=== PATIENT | female | born 1965 | race Caucasian/White ===

== ENCOUNTER → 2019-12-02 11:34 | Outpatient (BNVA) | payer BC, SELFPAY | PROVIDERS: Visit Provider Nurse Practitioner Family | DX: E11.65 Type 2 diabetes mellitus with hyperglycemia (principal); E03.9 Hypothyroidism, unspecified; E55.9 Vitamin D deficiency, unspecified; Z12.31 Encounter for screening mammogram for malignant neoplasm of breast; G25.81 Restless legs syndrome; I10 Essential (primary) hypertension; E78.5 Hyperlipidemia, unspecified; Z79.4 Long term (current) use of insulin; Z53.20 Procedure and treatment not carried out because of patient's decision for unspecified reasons | CPT/HCPCS: 80053; 80061; 82044; 82306; 83036; 84443; 85025 ==

== ENCOUNTER 2019-12-31 20:00 | Outpatient (CLI) | payer BC, SELFPAY | END 2019-12-31 20:01 | disposition home or self-care (01) | LOC: SLEEP 01-01 10:44 | PROVIDERS: PCP Nurse Practitioner Family; Visit Provider Nurse Practitioner Family | DX: G47.33 Obstructive sleep apnea (adult) (pediatric) (principal) | CPT/HCPCS: 95810; 95811 ==

== ENCOUNTER → 2020-03-17 08:29 | Outpatient (BNVA) | payer BC, SELFPAY | PROVIDERS: PCP Nurse Practitioner Family; Visit Provider Nurse Practitioner Family | DX: E11.65 Type 2 diabetes mellitus with hyperglycemia (principal); Z79.4 Long term (current) use of insulin; E03.9 Hypothyroidism, unspecified | CPT/HCPCS: 80053; 80061; 83036; 84443 ==

== ENCOUNTER → 2020-05-18 11:43 | Outpatient (BNVA) | payer BC, SELFPAY | PROVIDERS: PCP Nurse Practitioner Family; Visit Provider Nurse Practitioner Family | DX: R50.9 Fever, unspecified (principal); R05 Cough | CPT/HCPCS: 87635 ==

== ENCOUNTER → 2020-06-01 13:13 | Outpatient (BNVA) | payer BC, SELFPAY | PROVIDERS: PCP Nurse Practitioner Family; Visit Provider Nurse Practitioner Family | DX: U07.1 COVID-19 (principal) | CPT/HCPCS: 87635 ==

== ENCOUNTER → 2020-06-23 09:03 | Outpatient (BNVA) | payer BC, SELFPAY | PROVIDERS: PCP Nurse Practitioner Family; Visit Provider Nurse Practitioner Family | DX: E11.65 Type 2 diabetes mellitus with hyperglycemia (principal); Z79.4 Long term (current) use of insulin; E03.9 Hypothyroidism, unspecified | CPT/HCPCS: 80053; 83036; 84443 ==

== ENCOUNTER → 2020-06-24 16:49 | Outpatient (BNVA) | payer BC, SELFPAY | PROVIDERS: PCP Nurse Practitioner Family; Visit Provider Nurse Practitioner Family | DX: M79.671 Pain in right foot (principal) | CPT/HCPCS: 73630 ==

== ENCOUNTER → 2020-07-12 10:40 | Outpatient (BNVA) | payer BC, SELFPAY | PROVIDERS: PCP Nurse Practitioner Family; Visit Provider Family Medicine | DX: L29.9 Pruritus, unspecified (principal); R21 Rash and other nonspecific skin eruption | CPT/HCPCS: 85025; 86618; 86666; 86757 ==

== ENCOUNTER → 2020-11-03 09:39 | Outpatient (BNVA) | payer BC, SELFPAY | PROVIDERS: PCP Nurse Practitioner Family; Visit Provider Nurse Practitioner Family | DX: E11.65 Type 2 diabetes mellitus with hyperglycemia (principal); Z79.4 Long term (current) use of insulin; E55.9 Vitamin D deficiency, unspecified; E03.9 Hypothyroidism, unspecified; E78.5 Hyperlipidemia, unspecified | CPT/HCPCS: 80053; 80061; 82043; 82306; 83036; 84443; 85025 ==

== ENCOUNTER → 2021-01-23 08:22 | Outpatient (BNVA) | payer BC, SELFPAY | PROVIDERS: PCP Nurse Practitioner Family; Visit Provider Nurse Practitioner Family | DX: I10 Essential (primary) hypertension (principal); E03.9 Hypothyroidism, unspecified; E78.5 Hyperlipidemia, unspecified; E55.9 Vitamin D deficiency, unspecified; E11.65 Type 2 diabetes mellitus with hyperglycemia; Z79.4 Long term (current) use of insulin | CPT/HCPCS: 80053; 82306; 83036; 84443 ==

== ENCOUNTER → 2021-04-04 11:15 | Outpatient (BNVA) | payer BC, SELFPAY | PROVIDERS: PCP Nurse Practitioner Family; Visit Provider Nurse Practitioner Family | DX: M25.511 Pain in right shoulder (principal); R07.81 Pleurodynia | CPT/HCPCS: 71110; 73030 ==

== ENCOUNTER 2021-04-14 16:33 | Emergency (ER) | payer BC, SELFPAY ==
[2021-04-14 16:58] VITALS: BP 126/78; PULSE 101; RESP 18; TEMP 36.5; O2SAT 97; BMI 41.1
--- NOTE | 2021-04-14 17:18 | ED_ITS ---
HPI - Fall General: Chief Complaint: Fall Stated Complaint: Fall, Back Pain Time Seen by Provider: 04/14/21 17:14 History of Present Illness: HPI Narrative: Patient states she fell about 1:00 this afternoon landing on her buttocks. She did not have immediate pain in her back but little bit later she developed pain in her low back and she is here for that reason today. States that she got her feet tangled up in this region she fell denies loss of consciousness. complaint: fall Onset (ago): hour(s) Fall from: standing Fall witnessed: yes, by bystander Place fall occurred: home Loss of consciousness: None Context: tripped/slipped Location of injury: back Quality: aching Associated symptoms-after fall: Reports no associated symptoms; Denies abdominal pain, chest pain or headache(s) Review of Systems Const: Denies: fever(s), chills or body aches Eyes: Denies: change in vision or blurry vision ENMT: Denies: throat pain or nasal congestion Card: Denies: chest pain or dyspnea on exertion Resp: Denies: dyspnea, productive cough or non-productive cough GI: Denies: abdominal pain, nausea or vomiting Musc: Reports: back pain; Denies: extremity pain Skin/Breast: Denies: rash Neuro: Denies: headache(s) Psych: Denies: anxiety or depression Wilberto/Lymph: Denies: easy bruising PFSH ED PFSH: Medical History (Updated 04/14/21 @ 18:08 by ARI Garvin) Diabetes mellitus Hyperlipidemia Hypertension Hypothyroid Nocturnal hypoxemia NATALIE (obstructive sleep apnea) Restless leg syndrome Vitamin D deficiency Surgical History Hx of appendectomy Hx of knee surgery Hx of tonsillectomy Social History Smoking and tobacco status: never smoked Second hand smoke exposure: No Alcohol intake: never Lives independently: Yes Household members: spouse Housing: House Marital status: Current occupational status: employed Current occupation: [employer] History of recent travel: No Current gender identity: Female Physical Exam Const: COMMON NORMALS: no acute distress Cardio: COMMON NORMALS: regular rate RATE: regular rate Back/Pelvis: LUMBAR SPINE/LOWER BACK: Yes lumbar spinal tenderness Psych: COMMON NORMALS: mental status grossly normal Course Vital Signs: Vital signs: Vital Signs Temperature 97.7 F 04/14/21 16:58 Pulse Rate 101 H 04/14/21 16:58 Respiratory Rate 18 04/14/21 16:58 Blood Pressure 126/78 04/14/21 16:58 Pulse Oximetry 97 04/14/21 16:58 MDM - Fall MDM Narrative: Medical decision making narrative: I have tried to call her listed numerous times and keep getting a busy signal;. I will keep trying - will discuss thoracic finding with her. I was able to talk to Ms. Ellis at 0 [phone] this morning on Saturday. Discussed results of her radiology exam and instructed patient to follow back up with her primary care provider and discuss results of that and her upcoming bone scan determine nature of this thoracic fracture. Can discuss with her provider about whether be need for brace patient says pain medication is helping and she is just sitting in chair taking it easy presently and has no plan for any vigorous activity upcoming. Advised her to follow-up with her primary care provider Saturday and go over her symptoms. Advised her that that if worsening symptoms that she could come back to ER can be reevaluated possibility having a TL SO brace on if needed. Discharge Plan Discharge Patient Disposition: Home Clinical Impression: Fall Qualifiers: Encounter type: initial encounter Qualified Code(s): W19.XXXA - Unspecified fall, initial encounter Compression fracture of thoracic vertebra Qualifiers: Encounter type: initial encounter Thoracic vertebra fracture level: T12 Qualified Code(s): S22.080A - Wedge compression fracture of T11-T12 vertebra, initial encounter for closed fracture Condition: Stable Prescriptions: New hydrocodone-acetaminophen 5-325 mg tablet 1 tab PO TID PRN (Reason: pain) Qty: 20 RF: 0 cyclobenzaprine 5 mg tablet 5 mg PO TID PRN (Reason: muscle spasm) Qty: 10 RF: 0 No Action (DME) One free style vonnie reader See Rx Instructions .Route .MEDSUPPLY Qty: 1 RF: 0 hydroxyzine HCl 25 mg tablet 25 mg PO TID Qty: 30 RF: 1 diclofenac sodium 75 mg tablet,delayed release (DR/EC) 75 mg PO BID PRN (Reason: pain) Qty: 60 RF: 0 cyclobenzaprine 10 mg tablet See Rx Instructions PO TID PRN (Reason: muscle spasm) Qty: 30 RF: 0 furosemide [Lasix] 20 mg tablet 20 mg PO QAM Qty: 14 RF: 0 potassium chloride 10 mEq capsule, extended release 10 meq PO DAILY Qty: 14 RF: 0 ropinirole 4 mg tablet See Rx Instructions .ROUTE .COMPLEX Qty: 60 RF: 0 captopril 50 mg tablet See Rx Instructions .ROUTE .COMPLEX Qty: 30 RF: 2 Bydureon 2 mg/0.65 mL pen injector See Rx Instructions .ROUTE .COMPLEX Qty: 4 RF: 2 famotidine 20 mg tablet See Rx Instructions .ROUTE .COMPLEX Qty: 30 RF: 2 gabapentin 300 mg capsule See Rx Instructions .ROUTE .COMPLEX Qty: 120 RF: 2 glyburide 5 mg tablet See Rx Instructions .ROUTE .COMPLEX Qty: 120 RF: 2 hydrochlorothiazide 12.5 mg tablet See Rx Instructions .ROUTE .COMPLEX Qty: 30 RF: 2 levothyroxine 100 mcg tablet See Rx Instructions .ROUTE .COMPLEX Qty: 30 RF: 2 Janumet 50-1,000 mg tablet See Rx Instructions .ROUTE .COMPLEX Qty: 60 RF: 2 venlafaxine 75 mg capsule,extended release 24hr See Rx Instructions .ROUTE .COMPLEX Qty: 30 RF: 2 ergocalciferol (vitamin D2) 1,250 mcg (50,000 unit) capsule 1,250 mcg PO .weekly Qty: 12 RF: 0 Lantus Solostar U-100 Insulin 100 unit/mL (3 mL) insulin pen 80 unit SUBCUT DAILY Qty: 30 RF: 2 insulin lispro [Humalog KwikPen Insulin] 100 unit/mL insulin pen See Rx Instructions .ROUTE .COMPLEX Qty: 15 RF: 2 pravastatin 80 mg tablet See Rx Instructions .ROUTE .COMPLEX Qty: 30 RF: 2 FreeStyle Vonnie 14 Day Sensor Kit See Rx Instructions .ROUTE .COMPLEX Qty: 2 RF: 11 pen needle, diabetic [UltiCare Pen Needle] 32 gauge x 5/32 needle See Rx Instructions .ROUTE .COMPLEX Qty: 100 RF: 3 Discharge Orders: Discharge ED (Routine); Ordered 04/14/21 Ordered By: Mitchell Hair Referrals: Sydnee Rivero, [facility]LLER [Primary Care Provider] - Discharge Diet: Usual diet Discharge Activity: Resume usual activity Patient Instructions: Back Pain (ED), Fall Prevention (ED), Opioid Safety Activity Restrictions/Additional Instructions: Follow-up with medical provider as directed. Take medications as prescribed. Return to the ER or your medical provider if condition worsens. Please read and understand discharge instructions. If any questions ask please. Radiology will review x-rays later we will notify you if there is any changes. Coding Level of Care Code ED Deoiling Machine Operator for Chg Fwd Exam Expanded Problem Focused
--- NOTE | 2021-04-14 17:18 | XRR_ITS ---
PROCEDURE INFORMATION: Exam: XR Lumbosacral Spine Exam date and time: 04/14/2021 5:18 PM Age: 55 years old Clinical indication: Low back pain; Additional info: Fall TECHNIQUE: Imaging protocol: XR of the lumbosacral spine. Views: 2 or 3 views. COMPARISON: No relevant prior studies available. FINDINGS: Bones/joints: There is osteopenia. There is anterior wedging fracture deformity of T12 with mild bowing of the posterior endplate. No additional acute fracture. No subluxation. Soft tissues: Unremarkable. Other findings: Probable cholelithiasis is noted. XR/XR lumbar spine 2-3V* [id number] IMPRESSION: Two column anterior wedging fracture deformity of T12 without significant retropulsed bone.
== END 2021-04-14 18:04 | disposition home or self-care (01) ==
PROVIDERS: Emergency Provider Nurse Practitioner Family; PCP Nurse Practitioner Family
DX: S22.080A Wedge compression fracture of T11-T12 vertebra, initial encounter for closed fracture (principal); Z79.4 Long term (current) use of insulin; E11.9 Type 2 diabetes mellitus without complications; E78.5 Hyperlipidemia, unspecified; I10 Essential (primary) hypertension; W19.XXXA Unspecified fall, initial encounter
CPT/HCPCS: 72100; 99282

== ENCOUNTER 2021-04-18 15:58 | Emergency (ER) | payer BC, SELFPAY ==
[2021-04-18 16:44] VITALS: BP 122/78; PULSE 99; RESP 16; TEMP 36.5; O2SAT 97; BMI 40.7
--- NOTE | 2021-04-18 17:12 | ED_ITS ---
HPI - Recheck/Abnormal Lab/Rx General: Chief Complaint: Recheck/Abnormal Lab/Rx Stated Complaint: needs pain meds/ortho referral Time Seen by Provider: 04/18/21 17:11 History of Present Illness: HPI narrative: Patient is a 55-year-old female comes to the ED with back pain. Patient was seen here in the ED on April 14 after a fall and diagnosed with compression fracture of thoracic vertebrae. She was supposed to follow-up with her primary care physician today and to discuss getting a TLSO brace but she missed her appointment. She was told to come here to the ED for further evaluation. Patient says her pain is rated an 8 out of 10 at its in the mid to lower back. She denies any reinjuries or fall. Patient would like a referral to the orthopedic spine doctor. Review of Systems Const: Denies: fever(s), chills or fatigue Eyes: Denies: change in vision or eye discomfort ENMT: Denies: throat pain, odynophagia, nasal discharge or nasal congestion Card: Denies: chest pain, palpitations, edema, swelling of feet/ankles, dyspnea on exertion or orthopnea Resp: Denies: dyspnea, productive cough or non-productive cough GI: Denies: abdominal pain, nausea, vomiting, diarrhea, constipation or hematochezia : Denies: flank pain, dysuria or hematuria Musc: Reports: back pain; Denies: neck pain or extremity swelling Skin/Breast: Denies: rash or new lesions Neuro: Denies: headache(s), numbness in extremities or weakness in extremities PFS ED PFSH: Medical History Diabetes mellitus Hyperlipidemia Hypertension Hypothyroid Nocturnal hypoxemia NATALIE (obstructive sleep apnea) Restless leg syndrome Vitamin D deficiency Surgical History Hx of appendectomy Hx of knee surgery Hx of tonsillectomy Social History Smoking and tobacco status: never smoked Second hand smoke exposure: No Alcohol intake: never Lives independently: Yes Household members: spouse Housing: House Marital status: Current occupational status: employed Current occupation: [employer] History of recent travel: No Current gender identity: Female Physical Exam Const: COMMON NORMALS: no acute distress, patient oriented x3 and alert GENERAL APPEARANCE: cooperative and comfortable HENMT: COMMON NORMALS: normocephalic HEAD & SCALP: normocephalic MOUTH: Normal oral and palatal mucosa present THROAT: posterior oropharynx normal and uvula midline Neck/C-Spine: COMMON NORMALS: supple GENERAL: Yes normal visual inspection Resp: COMMON NORMALS: normal respiratory effort, No retractions, No use of accessory muscles and clear to auscultation bilaterally AUSCULTATION: clear to auscultation bilaterally Cardio: COMMON NORMALS: regular rate, regular rhythm, S1 normal heart sound present, S2 normal heart sound present, No gallops present (Cardio), No clicks present (Cardio), No murmurs present (Cardio) and Peripheral pulses 2+ throughout RATE: regular rate RHYTHM: regular rhythm HEART SOUNDS: S1 normal heart sound present and S2 normal heart sound present PERIPHERAL PULSES: Peripheral pulses 2+ throughout GI: COMMON NORMALS: Normal to inspection, nondistended, normoactive bowel sounds present, Soft to palpation, non-tender and no masses PALPATION: Yes Soft to palpation : COMMON NORMALS: Yes no CVA tenderness BLADDER/KIDNEY EXAM: Yes no CVA tenderness Back/Pelvis: COMMON NORMALS: no CVA tenderness THORACIC SPINE/UPPER BACK: Yes thoracic spinal tenderness T-spine tenderness location: T11 and T12 and Yes paraspinal muscle tenderness Thoracic paraspinal muscle tenderness: bilateral Bilateral thoracic paraspinal muscle tenderness: T11 and T12 Extremity: COMMON NORMALS: normal to inspection Neuro: COMMON NORMALS: patient oriented x3 and moves all extremities SENSORIUM/ORIENTATION: Yes alert Skin: GENERAL SKIN EXAM: dry skin Course Vital Signs: Vital signs: Vital Signs Temperature 97.7 F 04/18/21 16:44 Pulse Rate 101 H 04/18/21 18:00 Respiratory Rate 18 04/18/21 18:00 Blood Pressure 128/79 04/18/21 18:00 Pulse Oximetry 93 04/18/21 18:00 MDM - Recheck/Abnormal Lab/Rx MDM Narrative: Medical decision making narrative: Patient is a 55-year-old female comes to the ED with back pain. Patient was seen here in the ED for same complaint on April 14 and diagnosed with a T12 compression fracture. She was told she could come back here to the ED for reevaluation and to get a TLSO brace if she is unable to get to her primary care doctor. Patient missed a primary care doctor appointment today. Here in the ED patient was given a prescription for a TLSO brace and told to go to [facility] tomorrow to get fitted for brace. She was also given a prescription for tramadol as well for pain. I also placed an order with case management for patient be referred to Dr. Wallace the orthospine doctor for further evaluation. Patient was discharged. She was told that case management will be contacting you in the next couple days to set up an appointment with Dr. Wallace. Return ED precautions given. Patient stood agree with plan. Discharge Plan Discharge Patient Disposition: Home Clinical Impression: Compression fracture of thoracic vertebra Qualifiers: Encounter type: initial encounter Thoracic vertebra fracture level: T12 Qualified Code(s): S22.080A - Wedge compression fracture of T11-T12 vertebra, initial encounter for closed fracture Condition: Stable Prescriptions: No Action (DME) One free style vonnie reader See Rx Instructions .Route .MEDSUPPLY Qty: 1 RF: 0 hydroxyzine HCl 25 mg tablet 25 mg PO TID Qty: 30 RF: 1 diclofenac sodium 75 mg tablet,delayed release (DR/EC) 75 mg PO BID PRN (Reason: pain) Qty: 60 RF: 0 cyclobenzaprine 10 mg tablet See Rx Instructions PO TID PRN (Reason: muscle spasm) Qty: 30 RF: 0 furosemide [Lasix] 20 mg tablet 20 mg PO QAM Qty: 14 RF: 0 potassium chloride 10 mEq capsule, extended release 10 meq PO DAILY Qty: 14 RF: 0 ropinirole 4 mg tablet See Rx Instructions .ROUTE .COMPLEX Qty: 60 RF: 0 captopril 50 mg tablet See Rx Instructions .ROUTE .COMPLEX Qty: 30 RF: 2 Bydureon 2 mg/0.65 mL pen injector See Rx Instructions .ROUTE .COMPLEX Qty: 4 RF: 2 famotidine 20 mg tablet See Rx Instructions .ROUTE .COMPLEX Qty: 30 RF: 2 gabapentin 300 mg capsule See Rx Instructions .ROUTE .COMPLEX Qty: 120 RF: 2 glyburide 5 mg tablet See Rx Instructions .ROUTE .COMPLEX Qty: 120 RF: 2 hydrochlorothiazide 12.5 mg tablet See Rx Instructions .ROUTE .COMPLEX Qty: 30 RF: 2 levothyroxine 100 mcg tablet See Rx Instructions .ROUTE .COMPLEX Qty: 30 RF: 2 Janumet 50-1,000 mg tablet See Rx Instructions .ROUTE .COMPLEX Qty: 60 RF: 2 venlafaxine 75 mg capsule,extended release 24hr See Rx Instructions .ROUTE .COMPLEX Qty: 30 RF: 2 ergocalciferol (vitamin D2) 1,250 mcg (50,000 unit) capsule 1,250 mcg PO .weekly Qty: 12 RF: 0 Lantus Solostar U-100 Insulin 100 unit/mL (3 mL) insulin pen 80 unit SUBCUT DAILY Qty: 30 RF: 2 insulin lispro [Humalog KwikPen Insulin] 100 unit/mL insulin pen See Rx Instructions .ROUTE .COMPLEX Qty: 15 RF: 2 pravastatin 80 mg tablet See Rx Instructions .ROUTE .COMPLEX Qty: 30 RF: 2 FreeStyle Vonnie 14 Day Sensor Kit See Rx Instructions .ROUTE .COMPLEX Qty: 2 RF: 11 pen needle, diabetic [UltiCare Pen Needle] 32 gauge x 5/32 needle See Rx Instructions .ROUTE .COMPLEX Qty: 100 RF: 3 hydrocodone-acetaminophen 5-325 mg tablet 1 tab PO TID PRN (Reason: pain) Qty: 20 RF: 0 cyclobenzaprine 5 mg tablet 5 mg PO TID PRN (Reason: muscle spasm) Qty: 10 RF: 0 Discharge Orders: Discharge ED (Routine); Ordered 04/18/21 Ordered By: Luis Palmer Referrals: Sydnee Rivero FNP [Primary Care Provider] - Discharge Diet: Regular Discharge Activity: Limit activity as instructed Patient Instructions: Tramadol (By mouth), Thoracolumbar Fracture (ED) Activity Restrictions/Additional Instructions: Follow-up with medical provider as directed. Case management will contact you in the next several days set up appointment with Dr. Wallace the orthospine doctor. You can get TLSO brace at [facility] in [place]. Call them ahead of time to set up an appointment to get fitted for the TLSO brace. Take medications as prescribed. Return to the ER or your medical provider if condition worsens. Please read and understand discharge instructions. Thank you for choosing [facility] for your healthcare needs today. Please realize this is an emergency room and that we are providing you with a medical screening exam and this may not be complete and all inclusive of all the testing and or work up that you may need to determine your ailment or severity of your illness. It is very important that you follow up as instructed or that you return to the Emergency Department should you have concerns or if your condition changes or worsens in any way. Coding Level of Care Code ED Boom Pump Operator for Shreya Coppola Exam Comprehensive
[2021-04-18] MEDS: HYDROcodone-acetaminophen 5-325 mg Tablet 1 TAB PO (17:35)
[2021-04-18 18:00] VITALS: BP 128/79; PULSE 101; RESP 18; O2SAT 93
--- NOTE | 2021-04-19 09:11 | PC.SOCIAL ---
Call placed to Ortho clinic and spoke to Neeta. Provided information per Dr Palmer on referral to Dr Wallcae for T12 compression fracture. This will be reviewed and patient called by clinic.
--- NOTE | 2021-05-05 11:20 | DCPLANNER ---
Patient had a follow up appointment scheduled for 05.04.[address] Wallace at [facility] - patient did attend appointment.
== END 2021-04-18 18:58 | disposition home or self-care (01) ==
PROVIDERS: Emergency Provider Physician Assistant; PCP Nurse Practitioner Family
DX: S22.080A Wedge compression fracture of T11-T12 vertebra, initial encounter for closed fracture (principal); Z79.4 Long term (current) use of insulin; E11.9 Type 2 diabetes mellitus without complications; E78.5 Hyperlipidemia, unspecified; I10 Essential (primary) hypertension; W19.XXXA Unspecified fall, initial encounter
CPT/HCPCS: 99283

== ENCOUNTER 2021-04-19 16:33 | Outpatient (CLI) | payer BC, SELFPAY | END 2021-04-19 16:34 | disposition home or self-care (01) | LOC: SPT 16:33 | PROVIDERS: PCP Nurse Practitioner Family; Visit Provider Physician Assistant | DX: Z46.89 Encounter for fitting and adjustment of other specified devices (principal); S22.080D Wedge compression fracture of T11-T12 vertebra, subsequent encounter for fracture with routine healing; X58.XXXD Exposure to other specified factors, subsequent encounter | CPT/HCPCS: 97760; L0456 ==

== ENCOUNTER 2021-04-21 07:17 | Outpatient (CLI) | payer BC, SELFPAY ==
--- NOTE | 2021-04-21 07:20 | NM_ITS ---
WS: [id number] NUCLEAR MEDICINE WHOLE BODY BONE SCAN HISTORY: S22.49XA - Multiple fractures of ribs, unspecified side, ... COMPARISON: Shoulder radiograph 04/04/2021 and RIGHT lumbar spine 04/14/2021 TECHNIQUE: The patient was injected with 26.2 mCi of Technetium 99m HDP and serial whole-body scintig glenn have been performed with anterior and posterior images. Multiple bone abnormalities are identified. Most significant area of intense uptake involves the RIGH T glenoid. Radiographically this corresponds to an area of mixed lytic and sclerotic and permeative c hanges. There is interruption of the bony cortex involving the lateral RIGHT scapular border as seen radiographically. Numerous bilateral focal areas of moderate uptake involving several ribs. Moderate increased uptake within the T12 vertebral body. No additional spine abnormality. Degenerative changes in the tarsal region, bilateral. Normal radiotracer uptake noted within the kidneys and soft tissues . NM/NM bone scan whole body* [id number] IMPRESSION: 1. Multifocal areas of skeletal abnormality involving the ribs, T12 and RIGHT glenoid. Suspicious for metastatic bone disease or metabolic disease. 2. Radiographically mixed sclerotic and lytic changes in the bones. Most signi ficant finding involves the distal RIGHT glenoid and lateral border of the scap prabhu which appears interrupted radiographically. Consider multiple myeloma and m etastatic disease. 3. There is abnormal uptake within the T12 fracture which could be pathologic.
== END 2021-04-21 07:18 | disposition home or self-care (01) ==
LOC: RAD 07:19
PROVIDERS: PCP Nurse Practitioner Family; Visit Provider Nurse Practitioner Family
DX: S22.49XA Multiple fractures of ribs, unspecified side, initial encounter for closed fracture (principal); R07.81 Pleurodynia; M25.511 Pain in right shoulder; X58.XXXA Exposure to other specified factors, initial encounter
CPT/HCPCS: 78306; A9561

== ENCOUNTER → 2021-04-25 16:50 | Outpatient (BNVA) | payer BC, SELFPAY | PROVIDERS: PCP Nurse Practitioner Family; Visit Provider Nurse Practitioner Family | DX: G25.81 Restless legs syndrome (principal); E11.65 Type 2 diabetes mellitus with hyperglycemia; Z79.4 Long term (current) use of insulin; R60.9 Edema, unspecified; T07.XXXA Unspecified multiple injuries, initial encounter; E55.9 Vitamin D deficiency, unspecified; X58.XXXA Exposure to other specified factors, initial encounter | CPT/HCPCS: 80053; 80061; 81000; 82306; 82607; 83036; 83880; 84155; 84165; 84443; 85025; 85651; 86140 ==

== ENCOUNTER → 2021-04-28 13:18 | Outpatient (BNVA) | payer BC, SELFPAY | PROVIDERS: PCP Nurse Practitioner Family; Visit Provider Nurse Practitioner Family | DX: R60.9 Edema, unspecified (principal); T07.XXXA Unspecified multiple injuries, initial encounter; R77.8 Other specified abnormalities of plasma proteins; E78.5 Hyperlipidemia, unspecified; E03.9 Hypothyroidism, unspecified; I10 Essential (primary) hypertension; E83.52 Hypercalcemia; E11.65 Type 2 diabetes mellitus with hyperglycemia; Z79.4 Long term (current) use of insulin; X58.XXXA Exposure to other specified factors, initial encounter | CPT/HCPCS: 80048; 83880; 83883; 84260; 85651 ==

== ENCOUNTER → 2021-05-01 09:21 | Outpatient (BNVA) | payer BC, SELFPAY | PROVIDERS: PCP Nurse Practitioner Family; Visit Provider Nurse Practitioner Family | DX: E83.52 Hypercalcemia (principal); R77.8 Other specified abnormalities of plasma proteins; T07.XXXA Unspecified multiple injuries, initial encounter; X58.XXXA Exposure to other specified factors, initial encounter | CPT/HCPCS: 84156; 84166 ==

== ENCOUNTER → 2021-05-04 14:59 | Outpatient (BNVA) | payer BC, SELFPAY | PROVIDERS: PCP Nurse Practitioner Family; Visit Provider Orthopaedic Surgery | DX: S22.080A Wedge compression fracture of T11-T12 vertebra, initial encounter for closed fracture (principal); W19.XXXA Unspecified fall, initial encounter; M81.0 Age-related osteoporosis without current pathological fracture; K80.20 Calculus of gallbladder without cholecystitis without obstruction | CPT/HCPCS: 72100 ==

== ENCOUNTER → 2021-05-05 12:23 | Outpatient (BNVA) | payer BC, SELFPAY | PROVIDERS: PCP Nurse Practitioner Family; Visit Provider Nurse Practitioner Family | DX: R60.9 Edema, unspecified (principal) | CPT/HCPCS: 80053; 83880 ==

== ENCOUNTER → 2021-05-12 16:19 | Day surgery (SDC) | payer BC, SELFPAY ==
[2021-05-12 17:13] VITALS: BMI 40.7
[2021-05-12] MEDS: sodium chloride 0.9% 1,000 ML 750 ML IV (17:15)
[2021-05-12 17:35] VITALS: BP 126/60; PULSE 102; RESP 18; TEMP 36.7; O2SAT 97
--- NOTE | 2021-05-12 17:41 | PC.NURSE ---
PT QUESTIONED BY THIS NURSE REGARDING HEALTH HX UPON ADMISSION AND ANY POSSIBLE CHF OR KIDNEY ISSUES. PT STATED THAT SOMEONE TOLD HER SHE POSSIBLY HAS CHF. I CALLED NEEL, THE NURSE FOR DR RUIZ. NEEL STATED THAT PT IS SET TO BE TESTED FOR CHF IN NEAR FUTURE. ORDERS TO RUN THE HYDRATION BOLUS OVER 2 HOURS.
--- NOTE | 2021-05-12 17:45 | PC.NURSE ---
AT TIME OF BOLUS STARTED VSS, NO C/O SOB. LUNGS CLEAR , CALL LIGHT W/I REACH AND PT INSTRUCTED ON S/S OF FLUID OVERLOAD AND TO NOTIFY NURSE IMMEDIATLY OF ANY CHANGES.
[2021-05-12] MEDS: sodium chloride 0.9% 500 ML 750 ML IV (18:40)
== END ==
PROVIDERS: PCP Nurse Practitioner Family; Visit Provider Internal Medicine
DX: C79.51 Secondary malignant neoplasm of bone (principal); R79.9 Abnormal finding of blood chemistry, unspecified; R76.8 Other specified abnormal immunological findings in serum; C90.00 Multiple myeloma not having achieved remission; D64.9 Anemia, unspecified; E86.0 Dehydration; E83.52 Hypercalcemia
CPT/HCPCS: 96360; 96361; J7030

== ENCOUNTER 2021-05-14 08:49 | Outpatient (RCR) | payer BC, SELFPAY ==
[2021-05-14] MEDS: sodium chloride 0.9% 1,000 ML 750 ML IV (09:35)
[2021-05-14 09:45] VITALS: BP 151/65; PULSE 104; RESP 16; TEMP 36.8; O2SAT 96
[2021-05-14] MEDS: sodium chloride 0.9% 500 ML 750 ML IV (11:20)
== END 2021-05-20 23:59 | disposition home or self-care (01) ==
LOC: OPS 08:49
PROVIDERS: PCP Nurse Practitioner Family; Visit Provider Internal Medicine
DX: C79.51 Secondary malignant neoplasm of bone (principal); R79.9 Abnormal finding of blood chemistry, unspecified; R76.8 Other specified abnormal immunological findings in serum; C90.00 Multiple myeloma not having achieved remission; D64.9 Anemia, unspecified; E86.0 Dehydration; E83.52 Hypercalcemia
CPT/HCPCS: 96360; 96361; J7030; J7040

== ENCOUNTER 2021-05-15 10:24 | Outpatient (CLI) | payer BC, SELFPAY ==
--- NOTE | 2021-05-15 10:36 | CT_ITS ---
WS: [id number] Exam: CT head wo con* [id number] Date/Time of Exam: 05/15/2021 10:36 AM Reason For Exam: R41.0 - Disorientation, unspecified DLP: 925.[address] scans at [facility] use at least one of these dose optimization techniques: automat ed exposure control; mA and/or kV adjustment per patient size (includes targeted exams where dose is matched to clinical indication); or iterative reconstruction. No sign of acute intracranial bleed or space-occupying mass. The ventricles and basal cisterns are no rmal in size. No extra-axial fluid collections are seen. Ill-defined osteolytic defects are noted in the skull bilaterally and also the bilateral sphenoid bones. CT/CT head wo con* [id number] IMPRESSION: 1. No sign of the acute intracranial bleed or space-occupying mass in the brain . 2. Ill-defined osteolytic bone destruction involving the bilateral skull partic ularly the frontal and temporal areas as well as the bilateral sphenoid bones. This may represent a metastatic bone disease or multiple myeloma.
== END 2021-05-15 10:25 | disposition home or self-care (01) ==
LOC: RADWPI 10:29
PROVIDERS: PCP Nurse Practitioner Family; Visit Provider Nurse Practitioner Family
DX: R41.0 Disorientation, unspecified (principal)
CPT/HCPCS: 70450

== ENCOUNTER 2021-05-15 11:21 | Outpatient (RCR) | payer BC, SELFPAY ==
[2021-05-13 08:40] VITALS: BP 133/67; PULSE 108; RESP 18; TEMP 36.9; O2SAT 97
[2021-05-13] MEDS: sodium chloride 0.9% 1,000 ML 750 ML IV (09:31)
[2021-05-13] MEDS: sodium chloride 0.9% 500 ML 750 ML IV (11:15)
[2021-05-13 11:55] VITALS: BP 162/68; PULSE 108; RESP 18; TEMP 36.7; O2SAT 98
[2021-05-15 11:40] VITALS: BP 168/78; PULSE 102; RESP 20; TEMP 36.8; O2SAT 95
[2021-05-15] MEDS: sodium chloride 0.9% 1,000 ML 750 ML IV (11:50)
[2021-05-15] MEDS: sodium chloride 0.9% 500 ML 900 ML IV (13:13)
== END 2021-05-20 23:59 | disposition home or self-care (01) ==
LOC: OPS 11:21
PROVIDERS: PCP Nurse Practitioner Family; Visit Provider Internal Medicine
DX: C79.51 Secondary malignant neoplasm of bone (principal); R79.9 Abnormal finding of blood chemistry, unspecified; R76.8 Other specified abnormal immunological findings in serum; C90.00 Multiple myeloma not having achieved remission; D64.9 Anemia, unspecified; E86.0 Dehydration; E83.52 Hypercalcemia
CPT/HCPCS: 96360; 96361; J7030; J7040

== ENCOUNTER 2021-05-17 18:35 | Inpatient (IN) | payer BC, SELFPAY ==
[2021-05-17] VITALS (9 sets, daily range): BP systolic 116–137; BP diastolic 57–76; PULSE 102–110; RESP 21–38; TEMP 36.4; O2SAT 87–97; BMI 40.7
--- NOTE | 2021-05-17 18:38 | XRR_ITS ---
PROCEDURE INFORMATION: Exam: XR Chest Exam date and time: 05/17/2021 6:38 PM Age: 55 years old Clinical indication: Cough and fever and shortness of breath; Patient HX: Lethargic, SOB, cough, confusion, fever TECHNIQUE: Imaging protocol: XR of the chest. Views: 1 view. COMPARISON: No relevant prior studies available. FINDINGS: Lungs: Decreased lung volumes. Mildly increased interstitial lung markings diffusely. Patchy infrahilar airspace opacities are nonspecific given the low lung volumes. Pleural spaces: Unremarkable. No pleural effusion. No pneumothorax. Heart/Mediastinum: Mild cardiac enlargement. Bones/joints: Demineralized bones. Subarticular fracture of the right lateral scapula. XR/XR chest 1V portable [id number] IMPRESSION: Mild pulmonary vascular congestion changes are suspected.
--- NOTE | 2021-05-17 19:56 | ED_ITS ---
Documented by User: Thien Iniguez MD 05/17/21 22:32 HPI - Altered Mental Status General: Chief Complaint: Altered Mental Status Stated Complaint: Lethargic\SOB\Confusing\Fever Time Seen by Provider: 05/17/21 19:47 History of Present Illness: HPI narrative: This patient is a 55-year-old female who presents to the emergency department with shortness of breath confusion generalized weakness. Patient is recently diagnosed with multiple myeloma cancer and has been in the hospital few times for treatments. As an outpatient. Patient also recently was diagnosed with multiple compression fractures in the T and L-spine. And being in treated and followed by orthopedics for the same. Patient appears to be confused when asked questions and looks at her answer questions. Patient did have a CT scan performed 2 days ago as an outpatient. IMPRESSION: 1. No sign of the acute intracranial bleed or space-occupying mass in the brain. 2. Ill-defined osteolytic bone destruction involving the bilateral skull particularly the frontal and temporal areas as well as the bilateral sphenoid bones. This may represent a metastatic bone disease or multiple myeloma. complaint: confusion Onset (ago): day(s) Timing confirmed by: spouse Associated symptoms: Deny depression Review of Systems General: Reports: 10 or more systems reviewed and unremarkable except in HPI and below Const: Reports: fatigue; Denies: fever(s), chills or body aches Eyes: Denies: change in vision or blurry vision ENMT: Denies: throat pain, hoarseness or mouth pain Card: Denies: chest pain, palpitations, irregular heart rhythm, edema, swelling of feet/ankles or lightheadedness Resp: Reports: dyspnea; Denies: productive cough, non-productive cough, wheezing or pain on inspiration GI: Denies: abdominal pain, nausea or vomiting : Denies: flank pain, difficulty voiding, dysuria, urinary frequency, urinary urgency or urinary hesitancy Musc: Denies: neck pain, back pain, extremity pain, extremity swelling, joint pain, joint swelling, joint redness, joint warmth or limited range of motion Skin/Breast: Denies: rash, pruritus, erythema or skin tenderness Neuro: Reports: confusion; Denies: headache(s), numbness in extremities or weakness in extremities Psych: Reports: difficulty concentrating; Denies: anxiety or depression PFS ED PFSH: Medical History (Updated 05/17/21 @ 22:32 by Thien Iniguez MD) Diabetes mellitus Hyperlipidemia Hypertension Hypothyroid Nocturnal hypoxemia NATALIE (obstructive sleep apnea) Restless leg syndrome Vitamin D deficiency Surgical History Hx of appendectomy Hx of knee surgery Hx of tonsillectomy Social History Second hand smoke exposure: No Alcohol intake: never Caregiver/support person: Yes Lives independently: Yes Household members: spouse Housing: House Marital status: service: No Current occupational status: employed Current occupation: [employer] History of recent travel: No Current gender identity: Female Special lina needs: No Agree to transfusion: Yes Physical Exam Const: COMMON NORMALS: no acute distress, average body habitus, no limitations, healthy appearing, alert and well nourished ORIENTATION/CONSCIOUSNESS: Yes oriented to person and Yes oriented to place; not oriented to time HENMT: COMMON NORMALS: normocephalic, atraumatic, hearing grossly normal bilaterally, external ears normal, EAC's normal, TM's normal bilaterally, Normal external nose present, Normal nasal mucous membranes and turbinates present, moist oral mucous membranes, oropharynx normal, dentition normal and gingiva normal HEAD & SCALP: normocephalic and atraumatic NOSE: Normal external nose present and Normal nasal mucous membranes and turbinates present EXTERNAL EAR: Yes external ears normal EXTERNAL AUDITORY CANAL: EAC's normal TYMPANIC MEMBRANE: TM's normal bilaterally Neck/C-Spine: COMMON NORMALS: full ROM, no lymphadenopathy, supple, no meningeal signs, no JVD, Thyroid normal and No carotid bruits THYROID: Thyroid normal Chest: COMMONS NORMALS: normal inspection of the chest, normal palpation of entire chest wall, normal inspection of the breasts and normal palpation of the breasts Resp: COMMON NORMALS: normal respiratory effort, No retractions, No use of accessory muscles, clear to auscultation bilaterally and percussion normal AUSCULTATION: clear to auscultation bilaterally PERCUSSION: percussion normal Cardio: COMMON NORMALS: no JVD, regular rate, regular rhythm, S1 normal heart sound present, S2 normal heart sound present, No gallops present (Cardio), No clicks present (Cardio), No murmurs present (Cardio), No rub (Cardio) and Peripheral pulses 2+ throughout RATE: regular rate RHYTHM: regular rhythm HEART SOUNDS: S1 normal heart sound present and S2 normal heart sound present PERIPHERAL PULSES: Peripheral pulses 2+ throughout GI: COMMON NORMALS: Normal to inspection, nondistended, normoactive bowel sounds present, Soft to palpation, non-tender, No hepatosplenomegaly present, no masses and no bruits PALPATION: Yes Soft to palpation and Yes No hepatosplenomegaly present : COMMON NORMALS: Yes no CVA tenderness, Yes normal external appearance, Yes normal appearance of the vagina, Yes normal appearance of the cervix, Yes normal bimanual exam, Yes No adnexal tenderness and Yes no masses BLADDER/KIDNEY EXAM: Yes no CVA tenderness BIMANUAL EXAM - VAGINA & UTERUS: Yes normal bimanual exam Back/Pelvis: COMMON NORMALS: no CVA tenderness, thoracic and lumbar spine normal to inspection, no thoracic nor lumbar tenderness, thoraco-lumbar ROM normal and straight leg raise negative bilaterally Extremity: COMMON NORMALS: normal to inspection, full ROM, capillary refill normal, no joint enlargement, no clubbing, cyanosis or edema, no calf tenderness and no pedal edema Neuro: SENSORIUM/ORIENTATION: Yes alert, Yes oriented to person, Yes oriented to place, No oriented to time and Yes Orientation impaired MENINGEAL SIGNS: Yes no meningeal signs Course Vital Signs: Vital signs: Vital Signs Temperature 97.6 F 05/17/21 19:38 Pulse Rate 105 H 05/17/21 23:05 Respiratory Rate 38 H 05/17/21 23:05 Blood Pressure 137/76 05/17/21 23:05 Pulse Oximetry 97 05/17/21 23:05 MDM - Altered Mental Status Lab Data: Labs: Lab Results 05/17/21 05/17/21 05/17/21 Range/Units 20:00 20:00 20:00 WBC 6.9 (4.0-10.0) 10^3/ uL RBC 3.39 L (4.1-5.3) 10^6/u L Hgb 9.6 L (11.5-15.3) g/dL Hct 30.5 L (37.0-47.0) % MCV 90.0 (81-99) fL MCH 28.3 (28.0-34.0) pg MCHC 31.5 (30.0-36.0) g/dL RDW 18.2 H (12.1-15.1) % Plt Count 127 L (130-400) 10^3/c mm MPV 12.0 H (7.4-10.4) fL Neut % (Auto) 86.7 % Lymph % (Auto) 4.9 % Lincoln % (Auto) 6.4 % Eos % (Auto) 0.1 % Baso % (Auto) 0.3 % Neut # (Auto) 6.00 (1.8-7.7) 10^3/u L Lymph # (Auto) 0.3 L (0.8-4.8) 10^3/u L Lincoln # (Auto) 0.4 (0.2-0.9) 10^3/u L Eos # (Auto) 0.0 (0.0-0.8) 10^3/u L Baso # (Auto) 0.0 (0.0-0.1) 10^3/u L Nucleated RBC % (a uto) 0 % Nucleated RBCs # 0.0 /100WBC D-Dimer Specimen Type Sample Site ABG pH (7.35-7.45) ABG pCO2 (35-45) mmHg ABG pO2 (80.0-100.0) mmH g ABG HCO3 (22-26) mmol/L ABG O2 Saturation ABG Base Excess (-2.0-2.0) mmol/ L Tani Test A-a O2 Gradient (5-10) mmHg Hematocrit (37-47) % Hgb O2 Saturation (95-100) % Carboxyhemoglobin (0.4-20.1) %THgb Methemoglobin (0.4-1.5) % Total Hemoglobin (12-16) g/dL Ionized Calcium (1.1-1.4) mmol/L O2 Delivery Device Mail Truck Driver ID Sodium Cancelled Potassium Cancelled Chloride Cancelled Carbon Dioxide Cancelled Anion Gap Cancelled BUN Cancelled Creatinine Cancelled GFR Calculation Cancelled Glucose Cancelled POC Glucose (70-110) mg/dL Calculated Osmolal ity Cancelled Lactic Acid Cancelled Calcium Cancelled Total Bilirubin Cancelled AST Cancelled ALT Cancelled Alkaline Phosphata se Cancelled Troponin T Baselin e Troponin T 120 Min craig (0-10) ng/L Delta Troponin T (0-10) ABS# C-Reactive Protein Cancelled NT-Pro-B Natriuret Pep Cancelled Total Protein Cancelled Albumin Cancelled Globulin Cancelled Urine Color (Yellow) Urine Appearance (CLEAR) Urine pH (5-7) Ur Specific Gravit y (1.005-1.030) Urine Protein (Negative) Urine Glucose (UA) (Normal) Urine Ketones (Negative) Urine Blood (Negative) Urine Nitrate (Negative) Urine Bilirubin (Negative) Urine Urobilinogen (Negative) mg/dL Ur Leukocyte Amy ase (Negative) Urine RBC (0-2) /hpf Urine WBC (0-5) /hpf Ur Squamous Epith Cells (0-5) /hpf Calcium Oxalate Cr ystal /hpf Amorphous Sediment /hpf Urine Bacteria (NONE) /hpf Urine Mucus /hpf Urine Opiates Scre en (Negative) ng/mL Ur Barbiturates Sc reen (Negative) ng/mL Ur Phencyclidine S crn (Negative) ng/mL Ur Amphetamines Sc reen (Negative) ng/mL U Benzodiazepines Scrn (Negative) ng/mL Urine Cocaine Scre en (Negative) ng/mL U Marijuana (THC) Screen (Negative) ng/mL SARS-CoV-2 Ag (Rap id) (Negative) 05/17/21 05/17/21 05/17/21 Range/Units 20:00 20:00 20:04 WBC (4.0-10.0) 10^3/ uL RBC (4.1-5.3) 10^6/u L Hgb (11.5-15.3) g/dL Hct (37.0-47.0) % MCV (81-99) fL MCH (28.0-34.0) pg MCHC (30.0-36.0) g/dL RDW (12.1-15.1) % Plt Count (130-400) 10^3/c mm MPV (7.4-10.4) fL Neut % (Auto) % Lymph % (Auto) % Lincoln % (Auto) % Eos % (Auto) % Baso % (Auto) % Neut # (Auto) (1.8-7.7) 10^3/u L Lymph # (Auto) (0.8-4.8) 10^3/u L [place] # (Auto) (0.2-0.9) 10^3/u L Eos # (Auto) (0.0-0.8) 10^3/u L Baso # (Auto) (0.0-0.1) 10^3/u L Nucleated RBC % (a uto) % Nucleated RBCs # /100WBC D-Dimer Cancelled Specimen Type Sample Site ABG pH (7.35-7.45) ABG pCO2 (35-45) mmHg ABG pO2 (80.0-100.0) mmH g ABG HCO3 (22-26) mmol/L ABG O2 Saturation ABG Base Excess (-2.0-2.0) mmol/ L Tani Test A-a O2 Gradient (5-10) mmHg Hematocrit (37-47) % Hgb O2 Saturation (95-100) % Carboxyhemoglobin (0.4-20.1) %THgb Methemoglobin (0.4-1.5) % Total Hemoglobin (12-16) g/dL Ionized Calcium (1.1-1.4) mmol/L O2 Delivery Device Mail [employer] Driver ID Sodium Potassium Chloride Carbon Dioxide Anion Gap BUN Creatinine GFR Calculation Glucose POC Glucose (70-110) mg/dL Calculated Osmolal ity Lactic Acid Calcium Total Bilirubin AST ALT Alkaline Phosphata se Troponin T Baselin e Cancelled Troponin T 120 Min craig (0-10) ng/L Delta Troponin T (0-10) ABS# C-Reactive Protein NT-Pro-B Natriuret Pep Total Protein Albumin Globulin Urine Color (Yellow) Urine Appearance (CLEAR) Urine pH (5-7) Ur Specific Gravit y (1.005-1.030) Urine Protein (Negative) Urine Glucose (UA) (Normal) Urine Ketones (Negative) Urine Blood (Negative) Urine Nitrate (Negative) Urine Bilirubin (Negative) Urine Urobilinogen (Negative) mg/dL Ur Leukocyte Amy ase (Negative) Urine RBC (0-2) /hpf Urine WBC (0-5) /hpf Ur Squamous Epith Cells (0-5) /hpf Calcium Oxalate Cr ystal /hpf Amorphous Sediment /hpf Urine Bacteria (NONE) /hpf Urine Mucus /hpf Urine Opiates Scre en (Negative) ng/mL Ur Barbiturates Sc reen (Negative) ng/mL Ur Phencyclidine S crn (Negative) ng/mL Ur Amphetamines Sc reen (Negative) ng/mL U Benzodiazepines Scrn (Negative) ng/mL Urine Cocaine Scre en (Negative) ng/mL U Marijuana (THC) Screen (Negative) ng/mL SARS-CoV-2 Ag (Rap id) Negative (Negative) 05/17/21 05/17/21 05/17/21 Range/Units 21:22 21:22 21:22 WBC (4.0-10.0) 10^3/ uL RBC (4.1-5.3) 10^6/u L Hgb (11.5-15.3) g/dL Hct (37.0-47.0) % MCV (81-99) fL MCH (28.0-34.0) pg MCHC (30.0-36.0) g/dL RDW (12.1-15.1) % Plt Count (130-400) 10^3/c mm MPV (7.4-10.4) fL Neut % (Auto) % Lymph % (Auto) % Lincoln % (Auto) % Eos % (Auto) % Baso % (Auto) % Neut # (Auto) (1.8-7.7) 10^3/u L Lymph # (Auto) (0.8-4.8) 10^3/u L Lincoln # (Auto) (0.2-0.9) 10^3/u L Eos # (Auto) (0.0-0.8) 10^3/u L Baso # (Auto) (0.0-0.1) 10^3/u L Nucleated RBC % (a uto) % Nucleated RBCs # /100WBC D-Dimer Specimen Type Sample Site ABG pH (7.35-7.45) ABG pCO2 (35-45) mmHg ABG pO2 (80.0-100.0) mmH g ABG HCO3 (22-26) mmol/L ABG O2 Saturation ABG Base Excess (-2.0-2.0) mmol/ L Tani Test A-a O2 Gradient (5-10) mmHg Hematocrit (37-47) % Hgb O2 Saturation (95-100) % Carboxyhemoglobin (0.4-20.1) %THgb Methemoglobin (0.4-1.5) % Total Hemoglobin (12-16) g/dL Ionized Calcium (1.1-1.4) mmol/L O2 Delivery Device Mail Truck Driver ID Sodium 134 L Potassium 3.3 L Chloride 99 Carbon Dioxide 27 Anion Gap 11.3 BUN 18 Creatinine 0.6 GFR Calculation 103.4 Glucose 186 H POC Glucose (70-110) mg/dL Calculated Osmolal ity 285 Lactic Acid 1.3 Calcium 10.4 Total Bilirubin 0.8 AST 27 ALT 22 Alkaline Phosphata se 165 H Troponin T Baselin e 16 H Troponin T 120 Min craig (0-10) ng/L Delta Troponin T (0-10) ABS# C-Reactive Protein 63.8 H NT-Pro-B Natriuret Pep 3592 H Total Protein 7.6 Albumin 3.4 L Globulin 4.2 Urine Color (Yellow) Urine Appearance (CLEAR) Urine pH (5-7) Ur Specific Gravit y (1.005-1.030) Urine Protein (Negative) Urine Glucose (UA) (Normal) Urine Ketones (Negative) Urine Blood (Negative) Urine Nitrate (Negative) Urine Bilirubin (Negative) Urine Urobilinogen (Negative) mg/dL Ur Leukocyte Amy ase (Negative) Urine RBC (0-2) /hpf Urine WBC (0-5) /hpf Ur Squamous Epith Cells (0-5) /hpf Calcium Oxalate Cr ystal /hpf Amorphous Sediment /hpf Urine Bacteria (NONE) /hpf Urine Mucus /hpf Urine Opiates Scre en (Negative) ng/mL Ur Barbiturates Sc reen (Negative) ng/mL Ur Phencyclidine S crn (Negative) ng/mL Ur Amphetamines Sc reen (Negative) ng/mL U Benzodiazepines Scrn (Negative) ng/mL Urine Cocaine Scre en (Negative) ng/mL U Marijuana (THC) Screen (Negative) ng/mL SARS-CoV-2 Ag (Rap id) (Negative) 05/17/21 05/17/21 05/17/21 Range/Units 21:22 21:42 21:56 WBC (4.0-10.0) 10^3/ uL RBC (4.1-5.3) 10^6/u L Hgb (11.5-15.3) g/dL Hct (37.0-47.0) % MCV (81-99) fL MCH (28.0-34.0) pg MCHC (30.0-36.0) g/dL RDW (12.1-15.1) % Plt Count (130-400) 10^3/c mm MPV (7.4-10.4) fL Neut % (Auto) % Lymph % (Auto) % Lincoln % (Auto) % Eos % (Auto) % Baso % (Auto) % Neut # (Auto) (1.8-7.7) 10^3/u L Lymph # (Auto) (0.8-4.8) 10^3/u L Lincoln # (Auto) (0.2-0.9) 10^3/u L Eos # (Auto) (0.0-0.8) 10^3/u L Baso # (Auto) (0.0-0.1) 10^3/u L Nucleated RBC % (a uto) % Nucleated RBCs # /100WBC D-Dimer 2.36 H Specimen Type Sample Site ABG pH (7.35-7.45) ABG pCO2 (35-45) mmHg ABG pO2 (80.0-100.0) mmH g ABG HCO3 (22-26) mmol/L ABG O2 Saturation ABG Base Excess (-2.0-2.0) mmol/ L Tani Test A-a O2 Gradient (5-10) mmHg Hematocrit (37-47) % Hgb O2 Saturation (95-100) % Carboxyhemoglobin (0.4-20.1) %THgb Methemoglobin (0.4-1.5) % Total Hemoglobin (12-16) g/dL Ionized Calcium (1.1-1.4) mmol/L O2 Delivery Device Mail Truck Driver ID Sodium Potassium Chloride Carbon Dioxide Anion Gap BUN Creatinine GFR Calculation Glucose POC Glucose 215 H (70-110) mg/dL Calculated Osmolal ity Lactic Acid Calcium Total Bilirubin AST ALT Alkaline Phosphata se Troponin T Baselin e Troponin T 120 Min craig (0-10) ng/L Delta Troponin T (0-10) ABS# C-Reactive Protein NT-Pro-B Natriuret Pep Total Protein Albumin Globulin Urine Color Yellow (Yellow) Urine Appearance Sl hazy (CLEAR) Urine pH 5 (5-7) Ur Specific Gravit y 1.025 (1.005-1.030) Urine Protein Trace (Negative) Urine Glucose (UA) 2+ (Normal) Urine Ketones 1+ H (Negative) Urine Blood Neg (Negative) Urine Nitrate Negative (Negative) Urine Bilirubin 1+ H (Negative) Urine Urobilinogen 8 H (Negative) mg/dL Ur Leukocyte Amy ase Negative (Negative) Urine RBC 0-4 H (0-2) /hpf Urine WBC 0-4 H (0-5) /hpf Ur Squamous Epith Cells 10-15 H (0-5) /hpf Calcium Oxalate Cr ystal 15-25 H /hpf Amorphous Sediment 1+ /hpf Urine Bacteria 1+ H (NONE) /hpf Urine Mucus 1+ /hpf Urine Opiates Scre en (Negative) ng/mL Ur Barbiturates Sc reen (Negative) ng/mL Ur Phencyclidine S crn (Negative) ng/mL Ur Amphetamines Sc reen (Negative) ng/mL U Benzodiazepines Scrn (Negative) ng/mL Urine Cocaine Scre en (Negative) ng/mL U Marijuana (THC) Screen (Negative) ng/mL SARS-CoV-2 Ag (Rap id) (Negative) 05/17/21 05/17/21 05/17/21 Range/Units 21:56 23:05 23:59 WBC (4.0-10.0) 10^3/ uL RBC (4.1-5.3) 10^6/u L Hgb (11.5-15.3) g/dL Hct (37.0-47.0) % MCV (81-99) fL MCH (28.0-34.0) pg MCHC (30.0-36.0) g/dL RDW (12.1-15.1) % Plt Count (130-400) 10^3/c mm MPV (7.4-10.4) fL Neut % (Auto) % Lymph % (Auto) % Lincoln % (Auto) % Eos % (Auto) % Baso % (Auto) % Neut # (Auto) (1.8-7.7) 10^3/u L Lymph # (Auto) (0.8-4.8) 10^3/u L Lincoln # (Auto) (0.2-0.9) 10^3/u L Eos # (Auto) (0.0-0.8) 10^3/u L Baso # (Auto) (0.0-0.1) 10^3/u L Nucleated RBC % (a uto) % Nucleated RBCs # /100WBC D-Dimer Specimen Type Arterial Sample Site Radial, right ABG pH 7.51 H (7.35-7.45) ABG pCO2 36.5 (35-45) mmHg ABG pO2 63.4 L (80.0-100.0) mmH g ABG HCO3 28.8 H (22-26) mmol/L ABG O2 Saturation 93.5 ABG Base Excess 5.5 H (-2.0-2.0) mmol/ L Tani Test Pos A-a O2 Gradient 5.4 (5-10) mmHg Hematocrit 31.2 L (37-47) % Hgb O2 Saturation 91.3 L (95-100) % Carboxyhemoglobin 1.4 (0.4-20.1) %THgb Methemoglobin 1.0 (0.4-1.5) % Total Hemoglobin 10.2 L (12-16) g/dL Ionized Calcium 1.5 H (1.1-1.4) mmol/L O2 Delivery Device None Mail Truck Driver ID Posjo Sodium 137.0 Potassium 3.2 L Chloride Carbon Dioxide Anion Gap BUN Creatinine GFR Calculation Glucose 187.0 H POC Glucose (70-110) mg/dL Calculated Osmolal ity Lactic Acid Calcium Total Bilirubin AST ALT Alkaline Phosphata se Troponin T Baselin e Troponin T 120 Min craig 17.93 H (0-10) ng/L Delta Troponin T 1.93 (0-10) ABS# C-Reactive Protein NT-Pro-B Natriuret Pep Total Protein Albumin Globulin Urine Color (Yellow) Urine Appearance (CLEAR) Urine pH (5-7) Ur Specific Gravit y (1.005-1.030) Urine Protein (Negative) Urine Glucose (UA) (Normal) Urine Ketones (Negative) Urine Blood (Negative) Urine Nitrate (Negative) Urine Bilirubin (Negative) Urine Urobilinogen (Negative) mg/dL Ur Leukocyte Amy ase (Negative) Urine RBC (0-2) /hpf Urine WBC (0-5) /hpf Ur Squamous Epith Cells (0-5) /hpf Calcium Oxalate Cr ystal /hpf Amorphous Sediment /hpf Urine Bacteria (NONE) /hpf Urine Mucus /hpf Urine Opiates Scre en Positive H (Negative) ng/mL Ur Barbiturates Sc reen Negative (Negative) ng/mL Ur Phencyclidine S crn Negative (Negative) ng/mL Ur Amphetamines Sc reen Negative (Negative) ng/mL U Benzodiazepines Scrn Negative (Negative) ng/mL Urine Cocaine Scre en Negative (Negative) ng/mL U Marijuana (THC) Screen Negative (Negative) ng/mL SARS-CoV-2 Ag (Rap id) (Negative) Imaging Data^: CXR: Attestation: I personally reviewed and interpreted this imaging study as follows: Radiologist's impression: IMPRESSION: Mild pulmonary vascular congestion changes are suspected. EKG Data^: EKG 1: Attestation: I personally reviewed and interpreted this EKG as follows: EKG interpretation date: 05/17/21 EKG interpretation time: 22:09 Prior EKG tracings: not available for review Interpretation: Sinus tachycardia with left atrial enlargement moderate T wave changes heart rate 104 Discharge Plan Discharge Patient Disposition: Admitted As Inpatient Clinical Impression: Acute confusion, Dyspnea, CHF (congestive heart failure), Elevated d-dimer Condition: Stable Coding Level of Care Code ED Transitional Care Nurse for Chg Fwd Exam Comprehensive Documented by User: Deejay Ambrocio MD 05/18/21 01:09 HPI - Altered Mental Status General: Chief Complaint: Altered Mental Status Stated Complaint: Lethargic\SOB\Confusing\Fever Time Seen by Provider: 05/17/21 19:47 PFSH ED PFSH: Medical History (Updated 05/17/21 @ 22:32 by Thien Iniguez MD) Diabetes mellitus Hyperlipidemia Hypertension Hypothyroid Nocturnal hypoxemia NATALIE (obstructive sleep apnea) Restless leg syndrome Vitamin D deficiency Surgical History Hx of appendectomy Hx of knee surgery Hx of tonsillectomy Social History Second hand smoke exposure: No Alcohol intake: never Caregiver/support person: Yes Lives independently: Yes Household members: spouse Housing: House Marital status: service: No Current occupational status: employed Current occupation: [employer] History of recent travel: No Current gender identity: Female Special lina needs: No Agree to transfusion: Yes Course Vital Signs: Vital signs: Vital Signs Temperature 97.6 F 05/17/21 19:38 Pulse Rate 105 H 05/17/21 23:05 Respiratory Rate 38 H 05/17/21 23:05 Blood Pressure 137/76 05/17/21 23:05 Pulse Oximetry 97 05/17/21 23:05 MDM - Altered Mental Status MDM Narrative: Medical decision making narrative: Patient presents here with acute confusion. Patient also has congestive heart failure with elevated BNP and some pulmonary edema. Patient's been seen by Dr. Wong in the ER. Patient has no signs of acute infection. Patient's been stable down here and will plan on admission. Lab Data: Labs: Lab Results 05/17/21 05/17/21 05/17/21 Range/Units 20:00 20:00 20:00 WBC 6.9 (4.0-10.0) 10^3/ uL RBC 3.39 L (4.1-5.3) 10^6/u L Hgb 9.6 L (11.5-15.3) g/dL Hct 30.5 L (37.0-47.0) % MCV 90.0 (81-99) fL MCH 28.3 (28.0-34.0) pg MCHC 31.5 (30.0-36.0) g/dL RDW 18.2 H (12.1-15.1) % Plt Count 127 L (130-400) 10^3/c mm MPV 12.0 H (7.4-10.4) fL Neut % (Auto) 86.7 % Lymph % (Auto) 4.9 % Lincoln % (Auto) 6.4 % Eos % (Auto) 0.1 % Baso % (Auto) 0.3 % Neut # (Auto) 6.00 (1.8-7.7) 10^3/u L Lymph # (Auto) 0.3 L (0.8-4.8) 10^3/u L Lincoln # (Auto) 0.4 (0.2-0.9) 10^3/u L Eos # (Auto) 0.0 (0.0-0.8) 10^3/u L Baso # (Auto) 0.0 (0.0-0.1) 10^3/u L Nucleated RBC % (a uto) 0 % Nucleated RBCs # 0.0 /100WBC D-Dimer Specimen Type Sample Site ABG pH (7.35-7.45) ABG pCO2 (35-45) mmHg ABG pO2 (80.0-100.0) mmH g ABG HCO3 (22-26) mmol/L ABG O2 Saturation ABG Base Excess (-2.0-2.0) mmol/ L Tani Test A-a O2 Gradient (5-10) mmHg Hematocrit (37-47) % Hgb O2 Saturation (95-100) % Carboxyhemoglobin (0.4-20.1) %THgb Methemoglobin (0.4-1.5) % Total Hemoglobin (12-16) g/dL Ionized Calcium (1.1-1.4) mmol/L O2 Delivery Device Mail Truck Driver ID Sodium Cancelled Potassium Cancelled Chloride Cancelled Carbon Dioxide Cancelled Anion Gap Cancelled BUN Cancelled Creatinine Cancelled GFR Calculation Cancelled Glucose Cancelled POC Glucose (70-110) mg/dL Calculated Osmolal ity Cancelled Lactic Acid Cancelled Calcium Cancelled Total Bilirubin Cancelled AST Cancelled ALT Cancelled Alkaline Phosphata se Cancelled Troponin T Baselin e Troponin T 120 Min craig (0-10) ng/L Delta Troponin T (0-10) ABS# C-Reactive Protein Cancelled NT-Pro-B Natriuret Pep Cancelled Total Protein Cancelled Albumin Cancelled Globulin Cancelled Urine Color (Yellow) Urine Appearance (CLEAR) Urine pH (5-7) Ur Specific Gravit y (1.005-1.030) Urine Protein (Negative) Urine Glucose (UA) (Normal) Urine Ketones (Negative) Urine Blood (Negative) Urine Nitrate (Negative) Urine Bilirubin (Negative) Urine Urobilinogen (Negative) mg/dL Ur Leukocyte Amy ase (Negative) Urine RBC (0-2) /hpf Urine WBC (0-5) /hpf Ur Squamous Epith Cells (0-5) /hpf Calcium Oxalate Cr ystal /hpf Amorphous Sediment /hpf Urine Bacteria (NONE) /hpf Urine Mucus /hpf Urine Opiates Scre en (Negative) ng/mL Ur Barbiturates Sc reen (Negative) ng/mL Ur Phencyclidine S crn (Negative) ng/mL Ur Amphetamines Sc reen (Negative) ng/mL U Benzodiazepines Scrn (Negative) ng/mL Urine Cocaine Scre en (Negative) ng/mL U Marijuana (THC) Screen (Negative) ng/mL SARS-CoV-2 Ag (Rap id) (Negative) 05/17/21 05/17/21 05/17/21 Range/Units 20:00 20:00 20:04 WBC (4.0-10.0) 10^3/ uL RBC (4.1-5.3) 10^6/u L Hgb (11.5-15.3) g/dL Hct (37.0-47.0) % MCV (81-99) fL MCH (28.0-34.0) pg MCHC (30.0-36.0) g/dL RDW (12.1-15.1) % Plt Count (130-400) 10^3/c mm MPV (7.4-10.4) fL Neut % (Auto) % Lymph % (Auto) % [place] % (Auto) % Eos % (Auto) % Baso % (Auto) % Neut # (Auto) (1.8-7.7) 10^3/u L Lymph # (Auto) (0.8-4.8) 10^3/u L [place] # (Auto) (0.2-0.9) 10^3/u L Eos # (Auto) (0.0-0.8) 10^3/u L Baso # (Auto) (0.0-0.1) 10^3/u L Nucleated RBC % (a uto) % Nucleated RBCs # /100WBC D-Dimer Cancelled Specimen Type Sample Site ABG pH (7.35-7.45) ABG pCO2 (35-45) mmHg ABG pO2 (80.0-100.0) mmH g ABG HCO3 (22-26) mmol/L ABG O2 Saturation ABG Base Excess (-2.0-2.0) mmol/ L Tani Test A-a O2 Gradient (5-10) mmHg Hematocrit (37-47) % Hgb O2 Saturation (95-100) % Carboxyhemoglobin (0.4-20.1) %THgb Methemoglobin (0.4-1.5) % Total Hemoglobin (12-16) g/dL Ionized Calcium (1.1-1.4) mmol/L O2 Delivery Device [employer] ID Sodium Potassium Chloride Carbon Dioxide Anion Gap BUN Creatinine GFR Calculation Glucose POC Glucose (70-110) mg/dL Calculated Osmolal ity Lactic Acid Calcium Total Bilirubin AST ALT Alkaline Phosphata se Troponin T Baselin e Cancelled Troponin T 120 Min craig (0-10) ng/L Delta Troponin T (0-10) ABS# C-Reactive Protein NT-Pro-B Natriuret Pep Total Protein Albumin Globulin Urine Color (Yellow) Urine Appearance (CLEAR) Urine pH (5-7) Ur Specific Gravit y (1.005-1.030) Urine Protein (Negative) Urine Glucose (UA) (Normal) Urine Ketones (Negative) Urine Blood (Negative) Urine Nitrate (Negative) Urine Bilirubin (Negative) Urine Urobilinogen (Negative) mg/dL Ur Leukocyte Amy ase (Negative) Urine RBC (0-2) /hpf Urine WBC (0-5) /hpf Ur Squamous Epith Cells (0-5) /hpf Calcium Oxalate Cr ystal /hpf Amorphous Sediment /hpf Urine Bacteria (NONE) /hpf Urine Mucus /hpf Urine Opiates Scre en (Negative) ng/mL Ur Barbiturates Sc reen (Negative) ng/mL Ur Phencyclidine S crn (Negative) ng/mL Ur Amphetamines Sc reen (Negative) ng/mL U Benzodiazepines Scrn (Negative) ng/mL Urine Cocaine Scre en (Negative) ng/mL U Marijuana (THC) Screen (Negative) ng/mL SARS-CoV-2 Ag (Rap id) Negative (Negative) 05/17/21 05/17/21 05/17/21 Range/Units 21:22 21:22 21:22 WBC (4.0-10.0) 10^3/ uL RBC (4.1-5.3) 10^6/u L Hgb (11.5-15.3) g/dL Hct (37.0-47.0) % MCV (81-99) fL MCH (28.0-34.0) pg MCHC (30.0-36.0) g/dL RDW (12.1-15.1) % Plt Count (130-400) 10^3/c mm MPV (7.4-10.4) fL Neut % (Auto) % Lymph % (Auto) % Lincoln % (Auto) % Eos % (Auto) % Baso % (Auto) % Neut # (Auto) (1.8-7.7) 10^3/u L Lymph # (Auto) (0.8-4.8) 10^3/u L Lincoln # (Auto) (0.2-0.9) 10^3/u L Eos # (Auto) (0.0-0.8) 10^3/u L Baso # (Auto) (0.0-0.1) 10^3/u L Nucleated RBC % (a uto) % Nucleated RBCs # /100WBC D-Dimer Specimen Type Sample Site ABG pH (7.35-7.45) ABG pCO2 (35-45) mmHg ABG pO2 (80.0-100.0) mmH g ABG HCO3 (22-26) mmol/L ABG O2 Saturation ABG Base Excess (-2.0-2.0) mmol/ L Tani Test A-a O2 Gradient (5-10) mmHg Hematocrit (37-47) % Hgb O2 Saturation (95-100) % Carboxyhemoglobin (0.4-20.1) %THgb Methemoglobin (0.4-1.5) % Total Hemoglobin (12-16) g/dL Ionized Calcium (1.1-1.4) mmol/L O2 Delivery Device Mail Truck Driver ID Sodium 134 L Potassium 3.3 L Chloride 99 Carbon Dioxide 27 Anion Gap 11.3 BUN 18 Creatinine 0.6 GFR Calculation 103.4 Glucose 186 H POC Glucose (70-110) mg/dL Calculated Osmolal ity 285 Lactic Acid 1.3 Calcium 10.4 Total Bilirubin 0.8 AST 27 ALT 22 Alkaline Phosphata se 165 H Troponin T Baselin e 16 H Troponin T 120 Min craig (0-10) ng/L Delta Troponin T (0-10) ABS# C-Reactive Protein 63.8 H NT-Pro-B Natriuret Pep 3592 H Total Protein 7.6 Albumin 3.4 L Globulin 4.2 Urine Color (Yellow) Urine Appearance (CLEAR) Urine pH (5-7) Ur Specific Gravit y (1.005-1.030) Urine Protein (Negative) Urine Glucose (UA) (Normal) Urine Ketones (Negative) Urine Blood (Negative) Urine Nitrate (Negative) Urine Bilirubin (Negative) Urine Urobilinogen (Negative) mg/dL Ur Leukocyte Amy ase (Negative) Urine RBC (0-2) /hpf Urine WBC (0-5) /hpf Ur Squamous Epith Cells (0-5) /hpf Calcium Oxalate Cr ystal /hpf Amorphous Sediment /hpf Urine Bacteria (NONE) /hpf Urine Mucus /hpf Urine Opiates Scre en (Negative) ng/mL Ur Barbiturates Sc reen (Negative) ng/mL Ur Phencyclidine S crn (Negative) ng/mL Ur Amphetamines Sc reen (Negative) ng/mL U Benzodiazepines Scrn (Negative) ng/mL Urine Cocaine Scre en (Negative) ng/mL U Marijuana (THC) Screen (Negative) ng/mL SARS-CoV-2 Ag (Rap id) (Negative) 05/17/21 05/17/21 05/17/21 Range/Units 21:22 21:42 21:56 WBC (4.0-10.0) 10^3/ uL RBC (4.1-5.3) 10^6/u L Hgb (11.5-15.3) g/dL Hct (37.0-47.0) % MCV (81-99) fL MCH (28.0-34.0) pg MCHC (30.0-36.0) g/dL RDW (12.1-15.1) % Plt Count (130-400) 10^3/c mm MPV (7.4-10.4) fL Neut % (Auto) % Lymph % (Auto) % Lincoln % (Auto) % Eos % (Auto) % Baso % (Auto) % Neut # (Auto) (1.8-7.7) 10^3/u L Lymph # (Auto) (0.8-4.8) 10^3/u L Lincoln # (Auto) (0.2-0.9) 10^3/u L Eos # (Auto) (0.0-0.8) 10^3/u L Baso # (Auto) (0.0-0.1) 10^3/u L Nucleated RBC % (a uto) % Nucleated RBCs # /100WBC D-Dimer 2.36 H Specimen Type Sample Site ABG pH (7.35-7.45) ABG pCO2 (35-45) mmHg ABG pO2 (80.0-100.0) mmH g ABG HCO3 (22-26) mmol/L ABG O2 Saturation ABG Base Excess (-2.0-2.0) mmol/ L Tani Test A-a O2 Gradient (5-10) mmHg Hematocrit (37-47) % Hgb O2 Saturation (95-100) % Carboxyhemoglobin (0.4-20.1) %THgb Methemoglobin (0.4-1.5) % Total Hemoglobin (12-16) g/dL Ionized Calcium (1.1-1.4) mmol/L O2 Delivery Device [employer] Driver ID Sodium Potassium Chloride Carbon Dioxide Anion Gap BUN Creatinine GFR Calculation Glucose POC Glucose 215 H (70-110) mg/dL Calculated Osmolal ity Lactic Acid Calcium Total Bilirubin AST ALT Alkaline Phosphata se Troponin T Baselin e Troponin T 120 Min craig (0-10) ng/L Delta Troponin T (0-10) ABS# C-Reactive Protein NT-Pro-B Natriuret Pep Total Protein Albumin Globulin Urine Color Yellow (Yellow) Urine Appearance Sl hazy (CLEAR) Urine pH 5 (5-7) Ur Specific Gravit y 1.025 (1.005-1.030) Urine Protein Trace (Negative) Urine Glucose (UA) 2+ (Normal) Urine Ketones 1+ H (Negative) Urine Blood Neg (Negative) Urine Nitrate Negative (Negative) Urine Bilirubin 1+ H (Negative) Urine Urobilinogen 8 H (Negative) mg/dL Ur Leukocyte Amy ase Negative (Negative) Urine RBC 0-4 H (0-2) /hpf Urine WBC 0-4 H (0-5) /hpf Ur Squamous Epith Cells 10-15 H (0-5) /hpf Calcium Oxalate Cr ystal 15-25 H /hpf Amorphous Sediment 1+ /hpf Urine Bacteria 1+ H (NONE) /hpf Urine Mucus 1+ /hpf Urine Opiates Scre en (Negative) ng/mL Ur Barbiturates Sc reen (Negative) ng/mL Ur Phencyclidine S crn (Negative) ng/mL Ur Amphetamines Sc reen (Negative) ng/mL U Benzodiazepines Scrn (Negative) ng/mL Urine Cocaine Scre en (Negative) ng/mL U Marijuana (THC) Screen (Negative) ng/mL SARS-CoV-2 Ag (Rap id) (Negative) 05/17/21 05/17/21 05/17/21 Range/Units 21:56 23:05 23:59 WBC (4.0-10.0) 10^3/ uL RBC (4.1-5.3) 10^6/u L Hgb (11.5-15.3) g/dL Hct (37.0-47.0) % MCV (81-99) fL MCH (28.0-34.0) pg MCHC (30.0-36.0) g/dL RDW (12.1-15.1) % Plt Count (130-400) 10^3/c mm MPV (7.4-10.4) fL Neut % (Auto) % Lymph % (Auto) % Lincoln % (Auto) % Eos % (Auto) % Baso % (Auto) % Neut # (Auto) (1.8-7.7) 10^3/u L Lymph # (Auto) (0.8-4.8) 10^3/u L Lincoln # (Auto) (0.2-0.9) 10^3/u L Eos # (Auto) (0.0-0.8) 10^3/u L Baso # (Auto) (0.0-0.1) 10^3/u L Nucleated RBC % (a uto) % Nucleated RBCs # /100WBC D-Dimer Specimen Type Arterial Sample Site Radial, right ABG pH 7.51 H (7.35-7.45) ABG pCO2 36.5 (35-45) mmHg ABG pO2 63.4 L (80.0-100.0) mmH g ABG HCO3 28.8 H (22-26) mmol/L ABG O2 Saturation 93.5 ABG Base Excess 5.5 H (-2.0-2.0) mmol/ L Tani Test Pos A-a O2 Gradient 5.4 (5-10) mmHg Hematocrit 31.2 L (37-47) % Hgb O2 Saturation 91.3 L (95-100) % Carboxyhemoglobin 1.4 (0.4-20.1) %THgb Methemoglobin 1.0 (0.4-1.5) % Total Hemoglobin 10.2 L (12-16) g/dL Ionized Calcium 1.5 H (1.1-1.4) mmol/L O2 Delivery Device None Mail Truck Driver ID Posjo Sodium 137.0 Potassium 3.2 L Chloride Carbon Dioxide Anion Gap BUN Creatinine GFR Calculation Glucose 187.0 H POC Glucose (70-110) mg/dL Calculated Osmolal ity Lactic Acid Calcium Total Bilirubin AST ALT Alkaline Phosphata se Troponin T Baselin e Troponin T 120 Min craig 17.93 H (0-10) ng/L Delta Troponin T 1.93 (0-10) ABS# C-Reactive Protein NT-Pro-B Natriuret Pep Total Protein Albumin Globulin Urine Color (Yellow) Urine Appearance (CLEAR) Urine pH (5-7) Ur Specific Gravit y (1.005-1.030) Urine Protein (Negative) Urine Glucose (UA) (Normal) Urine Ketones (Negative) Urine Blood (Negative) Urine Nitrate (Negative) Urine Bilirubin (Negative) Urine Urobilinogen (Negative) mg/dL Ur Leukocyte Amy ase (Negative) Urine RBC (0-2) /hpf Urine WBC (0-5) /hpf Ur Squamous Epith Cells (0-5) /hpf Calcium Oxalate Cr ystal /hpf Amorphous Sediment /hpf Urine Bacteria (NONE) /hpf Urine Mucus /hpf Urine Opiates Scre en Positive H (Negative) ng/mL Ur Barbiturates Sc reen Negative (Negative) ng/mL Ur Phencyclidine S crn Negative (Negative) ng/mL Ur Amphetamines Sc reen Negative (Negative) ng/mL U Benzodiazepines Scrn Negative (Negative) ng/mL Urine Cocaine Scre en Negative (Negative) ng/mL U Marijuana (THC) Screen Negative (Negative) ng/mL SARS-CoV-2 Ag (Rap id) (Negative) Discharge Plan Discharge Patient Disposition: Admitted As Inpatient Clinical Impression: Acute confusion, Dyspnea, CHF (congestive heart failure), Elevated d-dimer Condition: Stable Coding Level of Care Code ED Transitional Care Nurse for Shreya Fwd Exam Comprehensive
[2021-05-17 20:18] LABS: Basophils % 0.3 %; Eosinophils % 0.1 %; Hematocrit 30.5 % (37.0-47.0); Hemoglobin 9.6 g/dL (11.5-15.3); Lymphocytes # 0.3 10^3/uL (0.8-4.8); Lymphocytes % 4.9 %; Mean Corpuscular HGB Conc 31.5 g/dL (30.0-36.0); Mean Corpuscular Hemoglobin 28.3 pg (28.0-34.0); Monocytes # 0.4 10^3/uL (0.2-0.9); Monocytes % 6.4 %; Neutrophils % 86.7 %; Nucleated Red Blood Cells % 0 %; Platelet Count 127 10^3/cmm (130-400); Red Blood Count 3.39 10^6/uL (4.1-5.3); Red Cell Distribution Width 18.2 % (12.1-15.1); White Blood Count 6.9 10^3/uL (4.0-10.0)
[2021-05-17 20:47] LABS: SARS Covid-2 Antigen Negative (Negative)
[2021-05-17 21:44] LABS: D Dimer 2.36 ug/mIFEU (0-0.59)
[2021-05-17 21:50] LABS: Glucose Point of Care 215 mg/dL (70-110)
[2021-05-17 21:55] LABS: Lactic Sepsis W/Reflex 1.3 mmol/L (0.5-2.2); Troponin(5th) Baseline 16 ng/L (0-10)
--- NOTE | 2021-05-17 21:55 | ECG_ITS ---
[facility] ED Test Date: 2021-05-17 Pat Name: Jaylyn Ellis Department: Room: Gender: Female Food Editor: : 1965 Requested By: Thien Iniguez Order Number: [id number] Ledbetter MD: Kierra Laird M.D. Measurements Intervals [place] Rate: 104 P: 49 NM: 178 QRS: -2 QRSD: 109 T: 39 QT: 349 QTc: 459 Interpretive Statements SINUS TACHYCARDIA POSSIBLE LEFT ATRIAL ENLARGEMENT [-0.1mV P WAVE IN V1/V2] MODERATE T-WAVE ABNORMALITY, CONSIDER ANTERIOR ISCHEMIA [-0.1+ mV T WAVE IN V3/V4] INTERPRETATION BASED ON A DEFAULT AGE OF 40 YEARS No previous ECG available for comparison Electronically Signed On 05-22-2021 0:41:03 CDT by Kierra Laird M.D. [email or web address]
[2021-05-17 21:58] LABS: Alanine Aminotransferase 22 U/L (0-33); Albumin Level 3.4 g/dL (3.5-5.2); Alkaline Phosphatase 165 IU/L (35-105); Anion Gap 11.3 (5-19); Aspartate Amino Transferase 27 U/L (0-32); Blood Urea Nitrogen 18 mg/dL (6-20); C Reactive Protein 63.8 mg/L (0.0-4.9); Calcium 10.4 mg/dL (8.5-10.5); Carbon Dioxide 27 mmol/L (22-29); Chloride 99 mmol/L (98-107); Globulin 4.2 g/dL (1.3-4.6); Glomerular Filtration Rate 103.4 mL/min (90-130); Glucose 186 mg/dL (65-115); NT Pro B Type Natriuretic Pept 3592 pg/mL (0-125); Osmolality Calculated 285 mOsm/kg (285-295); Potassium 3.3 mmol/L (3.5-5.1); Sodium 134 mmol/L (136-145); Total Bilirubin 0.8 mg/dL (0.15-1.2); Total Protein 7.6 g/dL (6.6-8.7)
--- NOTE | 2021-05-17 22:05 | CTR_ITS ---
PROCEDURE INFORMATION: Exam: CTA Chest With Contrast Exam date and time: 05/17/2021 10:05 PM Age: 55 years old Clinical indication: Abnormal findings; Abnormal diagnostic tests; Elevated d-dimer; Shortness of breath; Patient HX: SOB. Elevated ddimer. Multiple myeloma; Additional info: SOB with elevated ddimer TECHNIQUE: Imaging protocol: Computed tomographic angiography of the chest with contrast. 3D rendering (Not supervised by radiologist): MIP and/or 3D reconstructed images were created by the technologist. Radiation optimization: All CT scans at this facility use at least one of these dose optimization techniques: automated exposure control; mA and/or kV adjustment per patient size (includes targeted exams where dose is matched to clinical indication); or iterative reconstruction. Contrast material: OMNI 350; Contrast volume: 74 ml; Contrast route: INTRAVENOUS (IV); COMPARISON: CR XR chest 1V portable [id number] 05/17/2021 8:05 PM RADIATION DOSE METRICS: Total DLP (mGy-cm): 874.52 FINDINGS: Pulmonary arteries: Normal. No pulmonary emboli. Aorta: Unremarkable. No aortic aneurysm. No aortic dissection. Lungs: Bilateral lower lobe compressive atelectasis changes greater on right than left. Scattered mosaic attenuation changes of the lung parenchyma. Pleural spaces: Moderate volume right pleural effusion. Trace left pleural effusion. Heart: Unremarkable. No cardiomegaly. No pericardial effusion. Lymph nodes: Unremarkable. No enlarged lymph nodes. Gallbladder and bile ducts: Cholelithiasis. Bones/joints: The bones are severely demineralized. There is a fracture of the lateral scapula on the right with bone callus changes. Multiple right posterior rib fractures are present which may be of variable ages. Multiple left-sided rib fractures are also present which may be of variable ages. There is a moderate severity compression fracture deformity of T12 which is age indeterminate. There is a mild concavity of the superior vertebral endplate at L1. Thoracic spinal alignment is anatomic. The bone mineralization pattern overall is very mottled in appearance. Soft tissues: Thoracic paraspinal soft tissues are unremarkable. CT/CT angio chest PE protcl [id number] IMPRESSION: 1. Negative for pulmonary embolism. 2. Fluid overload changes in the chest. 3. Mottled appearance of the bones diffusely consistent with multiple myeloma. Numerous bilateral rib fractures, thoracolumbar spine vertebral fractures and right scapular fracture of variable ages. Radiation Dose CTDIVOL = (mGy): DLP = 874.52 (mGy-cm)
[2021-05-17 22:15] LABS: Protein Urine Trace (Negative); Specific Gravity, Urine 1.025 (1.005-1.030); Urine Appearance SL Hazy (CLEAR); Urine Color Yellow (Yellow); pH Urine 5 (5-7)
[2021-05-17 22:16] LABS: Glucose Urine UA 2+ (Normal)
[2021-05-17 22:17] LABS: Add Urine Microscopic? YES; Amorphous Sediment Urine 1+ /hpf; Bacteria Urine 1+ /hpf; Bilirubin Urine 1+ (Negative); Blood Urine Neg (Negative); Calcium Oxalate Crystals Urine 15-25 /hpf; Ketones Urine 1+ (Negative); Leukocyte Esterase Urine Negative (Negative); Mucus Urine 1+ /hpf; Nitrate Urine Negative (Negative); RBC Urine 0-4 /hpf (0-2); Urobilinogen Urine 8 mg/dL (Negative); WBC Urine 0-4 /hpf (0-5)
[2021-05-17 22:18] LABS: Add Urine Culture? No
[2021-05-17 22:20] LABS: Amphetamines Screen Urine Negative (Negative); Barbiturates Screen Urine Negative (Negative); Benzodiazepines Screen Urine Negative (Negative); Cocaine Screen Urine Negative (Negative); Opiate Screen Urine Positive (Negative); PCP Screen Urine Negative (Negative); THC Screen Urine Negative (Negative)
[2021-05-17] MEDS: iohexol 350 mg/mL 100 mL Btl IV (22:34)
[2021-05-17] MEDS: FUROsemide 10 mg/mL SDV 10mL 80 MG IVP (22:49)
[2021-05-17 23:15] LABS: ABG PCO2 36.5 mmHg (35-45); ABG PH Result 7.51 (7.35-7.45); Alveolar-Arterial Oxygen Gradi 5.4 mmHg (5-10); Arterial Blood Gas Hematocrit 31.2 % (37-47); Base Excess ABG 5.5 mmol/L (-2.0-2.0); Blood Gas Allen Test Pos; Blood Gas Sample Type Arterial; Carboxyhemoglobin 1.4 %THgb (0.4-20.1); HCO3 ABG 28.8 mmol/L (22-26); HGB O2 Sat 91.3 % (95-100); Ionized Calcium Level - ABG 1.5 mmol/L (1.1-1.4); Oxygen Saturation ABG 93.5; PO2 ABG 63.4 mmHg (80.0-100.0); Potassium Level - ABG 3.2 mmol/L (3.5-5.0); Total Hemoglobin 10.2 g/dL (12-16)
[2021-05-17 23:16] LABS: Blood Gas Sample Site Radial, right
[2021-05-18 00:25] LABS: Troponin 5 2HR 17.93 ng/L (0-10); Troponin 5 2HR Delta 1.93 ABS# (0-10)
[2021-05-18 01:58] VITALS: BP 168/89; PULSE 108; RESP 26; O2SAT 94
[2021-05-18 03:17] VITALS: PULSE 104; RESP 24; O2SAT 96
[2021-05-18 04:01] VITALS: BP 135/60; PULSE 100; RESP 22; O2SAT 100
[2021-05-18 04:24] LABS: Troponin 5 6HR 15.61 ng/L (0-10)
[2021-05-18 04:29] LABS: Troponin 5 6HR Delta -0.39 ng/L (0-12)
--- NOTE | 2021-05-18 06:06 | P.HP_ITS ---
Providers/Chief Complaint Admitting Physician: Jahaira Milner MD Primary Care Provider: ARI Ley Chief Complaint: Lethargic\SOB\Confusing\Fever History of Present Illness Jaylyn Ellis is a 55 year old female with recently diagnosed multiple myeloma, pathological fractures as a result of the same, hypercalcemia status post Zometa infusion yesterday in [place] with her oncologist(-does not recall name at this time), progressively increasing weakness and deconditioning over the last 2 months, brought to the ER with about 24 hours of increasing lethargy and confusion. At baseline patient ambulates with the assistance of a wheelchair and walker, has been weak ever since her diagnosis of multiple myeloma, however over the last 24 hours she is increasingly sleepy, difficult to wake up, confused. At this time she is able to tell me her name and recognizes her hu sband at bedside, knows she is in a hospital, however does not know that she has 2 sons and is unable to tell me names of her kids. Also unable to tell me her date of the president etc. She appears somnolent. She is moving all extremities while laying in bed and moving from bed to bedside commode with assistance at this time. Denies any pain at this time. No neck stiffness. No fever at home. No witnessed seizures. No loss of consciousness. No head trauma No cough chest pain dyspnea or palpitations. No nausea vomiting or diarrhea abdominal pain. She has had poor p.o. intake since her diagnosis. She is requiring 2 L/min supplemental oxygen which is new for her. Calcium today is within range at 10, ionized calcium slightly elevated at 1.5 on blood gas. Diagnostics in the ER with CT head without new intracranial events, CTA negative for PE, however showing pulmonary congestion, elevated BNP. Patient appears to have a history of CHF going by her list of medications, however has been unable to confirm at this time. I do not see an echocardiogram in the system. Review of Systems General: Reports: ROS unobtainable due to mental status Medications/Allergies Home Medications Medication Instructions Recorded Confirmed Last Taken Type insulin glargine 100 unit/mL (3 80 unit SUBCUT DAILY #30 ml MDD 01/25/21 05/17/21 04/28/21 Rx mL) subcutaneous pen see pharmacy comment insulin lispro 100 unit/mL See Rx Instructions .ROUTE 01/25/21 05/17/21 04/28/21 Rx subcutaneous pen .COMPLEX #15 ml MDD see pharmacy comment hydrocodone 5 mg-acetaminophen 325 1 - 2 tab PO Q4H PRN 10 Days #60 04/20/21 05/17/21 05/12/21 19:00 Rx mg tablet tab furosemide 40 mg tablet 40 mg PO QAM #30 tab 04/25/21 05/17/21 05/16/21 Rx potassium chloride 10 mEq 10 meq PO DAILY #30 cap 04/25/21 05/17/21 05/17/21 Rx capsule,extended release captopril 50 mg PO BEDTIME 05/17/21 05/17/21 05/16/21 History ergocalciferol (vitamin D2) 1,250 mcg PO Q7D 05/17/21 05/17/21 Unknown History exenatide microspheres [Bydureon] 2 mg SUBCUT Q7D 05/17/21 05/17/21 Unknown History famotidine 20 mg PO DAILY 05/17/21 05/17/21 05/16/21 History gabapentin 600 mg PO BID 05/17/21 05/17/21 05/17/21 History glyburide 10 mg PO BID 05/17/21 05/17/21 05/17/21 History hydrochlorothiazide 12.5 mg PO DAILY 05/17/21 05/17/21 05/17/21 History levothyroxine 112 mcg PO DAILY 05/17/21 05/17/21 05/17/21 History pravastatin 80 mg PO DAILY 05/17/21 05/17/21 05/16/21 History ropinirole 8 mg PO DAILY 05/17/21 05/17/21 05/16/21 History sennosides-docusate sodium 1 tab PO BID 05/17/21 05/17/21 05/17/21 History [Stimulant Laxative Plus] sitagliptin-metformin [Janumet] 1 tab PO DAILY 05/17/21 05/17/21 05/17/21 History venlafaxine 75 mg PO DAILY 05/17/21 05/17/21 05/16/21 History Allergies Allergy/AdvReac Type Severity Reaction Status Date / Time pseudoephedrine Allergy Mild ADR-Itching Verified 05/17/21 19:42 [From [place] (pseudoephedrine)] Penicillins Allergy Unknown ADR-Itching Verified 05/17/21 19:42 PFSH Acute PFSH: Medical History (Updated 05/18/21 @ 06:25 by Jahaira Milenr MD) COVID-08 May 2020 Diabetes mellitus Hyperlipidemia Hypertension Hypothyroid Multiple myeloma Nocturnal hypoxemia NATALIE (obstructive sleep apnea) Restless leg syndrome Vitamin D deficiency Surgical History Hx of appendectomy Hx of knee surgery Hx of tonsillectomy Social History Second hand smoke exposure: No Alcohol intake: never Caregiver/support person: Yes Lives independently: Yes Household members: spouse Housing: House Marital status: service: No Current occupational status: employed Current occupation: [employer] History of recent travel: No Current gender identity: Female Special lina needs: No Agree to transfusion: Yes Vitals/I&O/Wt Last Vital Signs Temp 97.6 F 05/17/21 19:38 Pulse 100 05/18/21 04:01 Resp 22 H 05/18/21 04:01 BP 135/60 05/18/21 04:01 Pulse Ox 100 05/18/21 04:01 Weight last 48 hrs Weight 104.326 kg Physical Exam Narrative: EXAM NARRATIVE: General: No acute distress, AO x1, sitting on bedside commode when seen HEENT: PERRLA, pupils bilaterally equal and reactive, pallors not present Chest: Normal vesicular breath sounds, no added sounds, equal good air entry bilaterally CVS: S1-S2 regular, no murmurs, no tachycardia, no gallops, no rubs Abdomen: Soft, nontender, no organomegaly, bowel sounds present Neuro: No focal deficits deficits grossly, moving all extremities, moving from bed to bedside commode with assistance Extremities: Bilateral lower extremity pitting edema, left worse than right, changes of stasis dermatitis, patient's states this is not new. Data : 05/17/21 20:00 05/17/21 21:22 Micro: Microbiology 05/17/21 21:18 Blood Culture - Preliminary Blood SPECIMEN COLLECTED 05/17/21 21:22 Blood Culture - Preliminary Blood SPECIMEN COLLECTED Attestation for Other Data: I personally reviewed and interpreted the following: Other data: Laboratory Results WBC 6.9 10^3/uL (4.0-10.0) 05/17/21 20:00 RBC 3.39 10^6/uL (4.1-5.3) L 05/17/21 20:00 Hgb 9.6 g/dL (11.5-15.3) L 05/17/21 20:00 Hct 30.5 % (37.0-47.0) L 05/17/21 20:00 MCV 90.0 fL (81-99) 05/17/21 20:00 MCH 28.3 pg (28.0-34.0) 05/17/21 20:00 MCHC 31.5 g/dL (30.0-36.0) 05/17/21 20:00 RDW 18.2 % (12.1-15.1) H 05/17/21 20:00 Plt Count 127 10^3/cmm (130-400) L 05/17/21 20:00 MPV 12.0 fL (7.4-10.4) H 05/17/21 20:00 Neut % (Auto) 86.7 % 05/17/21 20:00 Lymph % (Auto) 4.9 % 05/17/21 20:00 [place] % (Auto) 6.4 % 05/17/21 20:00 Eos % (Auto) 0.1 % 05/17/21 20:00 Baso % (Auto) 0.3 % 05/17/21 20:00 Neut # (Auto) 6.00 10^3/uL (1.8-7.7) 05/17/21 20:00 Lymph # (Auto) 0.3 10^3/uL (0.8-4.8) L 05/17/21 20:00 [place] # (Auto) 0.4 10^3/uL (0.2-0.9) 05/17/21 20:00 Eos # (Auto) 0.0 10^3/uL (0.0-0.8) 05/17/21 20:00 Baso # (Auto) 0.0 10^3/uL (0.0-0.1) 05/17/21 20:00 Nucleated RBC % (auto) 0 % 05/17/21 20:00 Nucleated RBCs # 0.0 /100WBC 05/17/21 20:00 D-Dimer 2.36 ug/mIFEU (0-0.59) H 05/17/21 21:22 Specimen Type Arterial 05/17/21 23:05 Sample Site Radial, right 05/17/21 23:05 ABG pH 7.51 (7.35-7.45) H 05/17/21 23:05 ABG pCO2 36.5 mmHg (35-45) 05/17/21 23:05 ABG pO2 63.4 mmHg (80.0-100.0) L 05/17/21 23:05 ABG HCO3 28.8 mmol/L (22-26) H 05/17/21 23:05 ABG O2 Saturation 93.5 05/17/21 23:05 ABG Base Excess 5.5 mmol/L (-2.0-2.0) H 05/17/21 23:05 Tani Test Pos 05/17/21 23:05 A-a O2 Gradient 5.4 mmHg (5-10) 05/17/21 23:05 Hematocrit 31.2 % (37-47) L 05/17/21 23:05 Hgb O2 Saturation 91.3 % (95-100) L 05/17/21 23:05 Carboxyhemoglobin 1.4 %THgb (0.4-20.1) 05/17/21 23:05 Methemoglobin 1.0 % (0.4-1.5) 05/17/21 23:05 Total Hemoglobin 10.2 g/dL (12-16) L 05/17/21 23:05 Sodium 137.0 mmol/L (131-143) 05/17/21 23:05 Potassium 3.2 mmol/L (3.5-5.0) L 05/17/21 23:05 Glucose 187.0 mg/dL (70-115) H 05/17/21 23:05 Ionized Calcium 1.5 mmol/L (1.1-1.4) H 05/17/21 23:05 O2 Delivery Device None 05/17/21 23:05 Etl Consultant ID Posjo 05/17/21 23:05 Sodium 134 mmol/L (136-145) L 05/17/21 21:22 Potassium 3.3 mmol/L (3.5-5.1) L 05/17/21 21:22 Chloride 99 mmol/L (98-107) 05/17/21 21:22 Carbon Dioxide 27 mmol/L (22-29) 05/17/21 21:22 Anion Gap 11.3 (5-19) 05/17/21 21:22 BUN 18 mg/dL (6-20) 05/17/21 21:22 Creatinine 0.6 mg/dL (0.5-0.9) 05/17/21 21:22 GFR Calculation 103.4 mL/min (90-130) 05/17/21 21:22 Glucose 186 mg/dL (65-115) H 05/17/21 21:22 POC Glucose 215 mg/dL (70-110) H 05/17/21 21:42 Calculated Osmolality 285 mOsm/kg (285-295) 05/17/21 21:22 Lactic Acid 1.3 mmol/L (0.5-2.2) 05/17/21 21:22 Calcium 10.4 mg/dL (8.5-10.5) 05/17/21 21:22 Total Bilirubin 0.8 mg/dL (0.15-1.2) 05/17/21 21:22 AST 27 U/L (0-32) 05/17/21 21:22 ALT 22 U/L (0-33) 05/17/21 21:22 Alkaline Phosphatase 165 IU/L (35-105) H 05/17/21 21:22 Troponin T Baseline 16 ng/L (0-10) H 05/17/21 21:22 Troponin T 120 Minute 17.93 ng/L (0-10) H 05/17/21 23:59 Delta Troponin T 1.93 ABS# (0-10) 05/17/21 23:59 Troponin T Hi Sens 6Hr 15.61 ng/L (0-10) H 05/18/21 03:22 Troponin T Hi Sens 6Hr Delta -0.39 ng/L (0-12) L 05/18/21 03:22 C-Reactive Protein 63.8 mg/L (0.0-4.9) H 05/17/21 21:22 NT-Pro-B Natriuret Pep 3592 pg/mL (0-125) H 05/17/21 21:22 Total Protein 7.6 g/dL (6.6-8.7) 05/17/21 21:22 Albumin 3.4 g/dL (3.5-5.2) L 05/17/21 21:22 Globulin 4.2 g/dL (1.3-4.6) 05/17/21 21:22 Urine Color Yellow (Yellow) 05/17/21 21:56 Urine Appearance Sl hazy (CLEAR) 05/17/21 21:56 Urine pH 5 (5-7) 05/17/21 21:56 Ur Specific [place] 1.025 (1.005-1.030) 05/17/21 21:56 Urine Protein Trace (Negative) 05/17/21 21:56 Urine Glucose (UA) 2+ (Normal) 05/17/21 21:56 Urine Ketones 1+ (Negative) H 05/17/21 21:56 Urine Blood Neg (Negative) 05/17/21 21:56 Urine Nitrate Negative (Negative) 05/17/21 21:56 Urine Bilirubin 1+ (Negative) H 05/17/21 21:56 Urine Urobilinogen 8 mg/dL (Negative) H 05/17/21 21:56 Ur Leukocyte Esterase Negative (Negative) 05/17/21 21:56 Urine RBC 0-4 /hpf (0-2) H 05/17/21 21:56 Urine WBC 0-4 /hpf (0-5) H 05/17/21 21:56 Ur Squamous Epith Cells 10-15 /hpf (0-5) H 05/17/21 21:56 Calcium Oxalate Crystal 15-25 /hpf H 05/17/21 21:56 Amorphous Sediment 1+ /hpf 05/17/21 21:56 Urine Bacteria 1+ /hpf (NONE) H 05/17/21 21:56 Urine Mucus 1+ /hpf 05/17/21 21:56 Urine Opiates Screen Positive ng/mL (Negative) H 05/17/21 21:56 Ur Barbiturates Screen Negative ng/mL (Negative) 05/17/21 21:56 Ur Phencyclidine Scrn Negative ng/mL (Negative) 05/17/21 21:56 Ur Amphetamines Screen Negative ng/mL (Negative) 05/17/21 21:56 U Benzodiazepines Scrn Negative ng/mL (Negative) 05/17/21 21:56 Urine Cocaine Screen Negative ng/mL (Negative) 05/17/21 21:56 U Marijuana (THC) Screen Negative ng/mL (Negative) 05/17/21 21:56 SARS-CoV-2 Ag (Rapid) Negative (Negative) 05/17/21 20:04 Impressions Chest X-Ray 05/17/21 18:38 IMPRESSION: Mild pulmonary vascular congestion changes are suspected. Chest CTA 05/17/21 22:05 IMPRESSION: 1. Negative for pulmonary embolism. 2. Fluid overload changes in the chest. 3. Mottled appearance of the bones diffusely consistent with multiple myeloma. Numerous bilateral rib fractures, thoracolumbar spine vertebral fractures and right scapular fracture of variable ages. Radiation Dose CTDIVOL = (mGy): DLP = 874.52 (mGy-cm) A&P Assessment and plan (1) Altered mental status: Manifesting as confusion, increased lethargy and somnolence. No neck stiffness, no fever, lower suspicion for meningoencephalitis, myeloma less likely to present with leptomeningeal disease, holding off on LP for now CT head without any acute intracranial events May be related to polypharmacy, holding opiates, gabapentin for now History of hypothyroidism, check TSH, continue home dose of levothyroxine in the interim Patient received Zometa yesterday, presumably for hypercalcemia, will obtain records from her oncologist office. 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 Patient is vaccinated for COVID-19 prior to her diagnosis, history of Covid pneumonia in April 2020 Status: Acute Qualifiers: Altered mental status type: somnolence Qualified Code(s): R40.0 - Somnolence (2) Acute confusion: As above Status: Acute (3) CHF (congestive heart failure): No past echocardiogram in the system Per review of home medications, patient is on FABIANA inhibitor's and daily Lasix, I am uncertain of the indication for the same Today CTA with evidence of pulmonary congestion, BNP elevated, lower extremity edema, may be indicative of CHF Lasix 80 mg IV received in the ER Continue with 40 mg IV every 12 hours Replete potassium Monitor urine output, daily weight Status: Acute Qualifiers: Heart failure type: unspecified Heart failure chronicity: unspecified Qualified Code(s): I50.9 - Heart failure, unspecified (4) Dyspnea: Status: Acute Qualifiers: Dyspnea type: shortness of breath Qualified Code(s): R06.02 - Shortness of breath Additional A&P Information Diabetes mellitus: On high-dose insulin sliding scale for now DVT prophylaxis Lovenox Full code, however would not want prolonged intubation or if CPR appearing to be futile would not wish to continue. This has been discussed with her Attestations Medical Necessity Statement*: Anticipate greater than 2 midnight admission for above defined care Coding Level of Care Code Acute [employer] for [facility] Diagnoses Altered mental status R40.0 Altered mental status type: somnolence Acute confusion R41.0 CHF (congestive heart failure) I50.9 Heart failure type: unspecified Heart failure chronicity: unspecified Dyspnea R06.02 Dyspnea type: shortness of breath
--- NOTE | 2021-05-18 06:15 | USCV_ITS ---
Jaylyn Ellis Age: 55 Gender: F : 1965 Exam Date: 05/18/2021 09:51 Ordering Phys: Jahaira Milner MD Technologist: Jesus Manuel Shook Exam Location: [facility] [place] Indication: Congestive heart failure BP: 161 / 81 HR: 104 Rhythm: Sinus Technical Quality: Suboptimal MEASUREMENTS (Male / Female) Normal Values 2D ECHO LV Diastolic Diameter PLAX 3.1 cm 4.2 - 5.9 / 3.9 - 5.3 cm LV Systolic Diameter PLAX 1.8 cm IVS Diastolic Thickness 1.4 cm 0.6 - 1.0 / 0.6 - 0.9 cm IVS Systolic Thickness 1.8 cm LVPW Diastolic Thickness 1.1 cm 0.6 - 1.0 / 0.6 - 0.9 cm LVPW Systolic Thickness 1.4 cm LVOT Diameter 2.1 cm LV Ejection Fraction 2D Teich 74.2 % LV Ejection Fraction MOD 2C 75.6 % LV Ejection Fraction 2C AL 76.4 % LA Diameter 3.9 cm M-MODE Aortic Annulus Diameter 3.1 cm LA Ao Ratio MM 1.3 DOPPLER AV Peak Velocity 194.3 cm/s LVOT Peak Velocity 112.0 cm/s AV Area Cont Eq vti 2.4 cm squared AV Area Cont Eq pk 1.9 cm squared MV Area PHT 5.0 cm squared Mitral E to A Ratio 1.5 MV E' Velocity 66.0 cm/s Mitral E to MV E' Ratio 19.3 Mitral E to LV E' Lateral Ratio 18.4 Mitral E to LV E' Septal Ratio 20.2 TR Peak Velocity 261.0 cm/s TR Peak Gradient 27.2 mmHg TV Peak E Velocity 109.0 cm/s Right Atrial Pressure 3.0 mmHg Pulmonary Artery Systolic Pressu 30.2 mmHg FINDINGS Left Ventricle Normal left ventricular size, wall thickness and systolic function with no regional wall motion abnormalities. Left ventricular ejection fraction is estimated at 65 %. Grade II diastolic dysfunction, moderately elevated filling pressures. Right Ventricle Normal right ventricular size and systolic function. Right ventricular systolic pressure 30.2 mmHg. Right Atrium Normal right atrial size. Left Atrium Probably mildly increased left atrial size Mitral Valve Thickened mitral valve. No mitral valve stenosis. Trace mitral valve regurgitation. Aortic Valve Probably trileaflet aortic valve. No aortic valve stenosis. No aortic valve regurgitation. Tricuspid Valve Tricuspid valve not well visualized. Trace tricuspid valve regurgitation. Pulmonic Valve Pulmonic valve not well visualized. No pulmonary valve stenosis. Pericardium No pericardial effusion. Aorta Aorta not well visualized. CONCLUSIONS 1. This is a technically difficult study. Ultrasound enhancing agent Optison was used. 2. Normal left ventricular size, wall thickness and systolic function with no regional wall motion abnormalities. Left ventricular ejection fraction is estimated at 65 %. Grade II diastolic dysfunction, moderately elevated filling pressures. 3. Normal right ventricular size and systolic function. 4. No significant valvular abnormality. 5. No prior similar studies to compare. Kierra Laird MD (Electronically Signed) Final Date: 18 May 2021 18:28 S
[2021-05-18 07:49] VITALS: BP 138/62; PULSE 102; RESP 38; O2SAT 93
--- NOTE | 2021-05-18 11:32 | PC.NURSE ---
Clean linens placed at this time. Blake replaced and patient repositioned in bed. No further needs at this time.
[2021-05-18] MEDS: FUROsemide 10 mg/mL SDV 4mL 40 MG IVP (12:25)
--- NOTE | 2021-05-18 12:32 | PM.DCS ---
Discharge Providers Date of Admission: 05/18/21 00:02 Date of Discharge: May 18, 2021 Attending Provider at Admission: Jahaira Milner MD Attending Provider at Discharge: Roman Rivera DO Primary Care Provider: ARI Ley Diagnoses at Discharge Discharge Diagnosis (1) Altered mental status: Status: Acute Qualifiers: Altered mental status type: somnolence Qualified Code(s): R40.0 - Somnolence (2) Acute confusion: Status: Acute (3) CHF (congestive heart failure): Status: Acute Qualifiers: Heart failure chronicity: unspecified Heart failure type: unspecified Qualified Code(s): I50.9 - Heart failure, unspecified (4) Dyspnea: Status: Acute Qualifiers: Dyspnea type: shortness of breath Qualified Code(s): R06.02 - Shortness of breath Reason for Visit Reason for Visit: Lethargic\SOB\Confusing\Fever Hospital Course Hospital Course Jaylyn Ellis is a 55 year old female with recently diagnosed multiple myeloma, pathological fractures as a result of the same, hypercalcemia status post Zometa infusion yesterday in [place] with her oncologist(-does not recall name at this time), progressively increasing weakness and deconditioning over the last 2 months, brought to the ER with about 24 hours of increasing lethargy and confusion. She recently received daily infusions of saline prior to Zometa infusion. At baseline patient ambulates with the assistance of a wheelchair and walker, has been weak ever since her diagnosis of multiple myeloma, however over the last 24 hours she is increasingly sleepy, difficult to wake up, confused. At this time she is able to tell me her name and recognizes her at bedside, knows she is in a hospital, however does not know that she has 2 sons and is unable to tell me names of her kids. Also unable to tell me her date of the president etc. She appears somnolent. She is moving all extremities while laying in bed and moving from bed to bedside commode with assistance at this time. Denies any pain at this time. No neck stiffness. No fever at home. No witnessed seizures. No loss of consciousness. No head trauma No cough chest pain dyspnea or palpitations. No nausea vomiting or diarrhea abdominal pain. She has had poor p.o. intake since her diagnosis. She is requiring 2 L/min supplemental oxygen which is new for her. Calcium today is within range at 10, ionized calcium slightly elevated at 1.5 on blood gas. Diagnostics in the ER with CT head without new intracranial events, CTA negative for PE, however showing pulmonary congestion, elevated BNP. Patient appears to have a history of CHF going by her list of medications, however has been unable to confirm at this time. I do not see an echocardiogram in the system. Pt was given oxygen and lasix while waiting for a bed in our hospital. Unfortunately the patient has been waiting for a bed for extensive period with no expected openings of beds/staff. I spoke with Dr. Goldman from [place] and she will accept pt for CHF exacerbaction. Physical Exam Narrative: EXAM NARRATIVE: General: No acute distress, AO x1,looks to for answers. HEENT: PERRLA, pupils bilaterally equal and reactive Chest: diminished BS with crackles heard at bases. CVS: S1-S2 regular, no murmurs, no tachycardia, no gallops, no rubs Abdomen: Soft, nontender, no organomegaly, bowel sounds present Neuro: No focal deficits deficits grossly, moving all extremities, moving from bed to bedside commode with assistance Extremities: Bilateral lower extremity pitting edema, left worse than right, changes of stasis dermatitis, patient's states this is not new. Discharge Data Data Completed and Pending: Completed Studies During Hospitalization Category Date Time Status CT angio chest PE protcl [id number] Stat Cat Scan 05/17/21 22:05 Completed XR chest 1V krzysztof ble [id number] Stat Exams 05/17/21 18:38 Completed Pending at discharge Category Date Time Status Blood Culture Sta t Lab 05/17/21 21:18 Results Coronavirus Test [facility] ne Lab 05/17/21 23:00 Received Thyroid Stimulati ng Hormone Routine Lab 05/18/21 03:22 [place] [id number] Routin e Ultrasound 05/18/21 12:07 Ordered CV. echo wo/w con trast [id number] Routin e Ultrasound 05/18/21 06:15 Taken Labs from last 24 hours 05/18/21 05/18/21 05/17/21 03:22 03:22 23:59 WBC RBC Hgb Hct MCV MCH MCHC RDW Plt Count MPV Neut % (Auto) Lymph % (Auto) [place] % (Auto) Eos % (Auto) Baso % (Auto) Neut # (Auto) Lymph # (Auto) [place] # (Auto) Eos # (Auto) Baso # (Auto) Nucleated RBC % (a uto) Nucleated RBCs # D-Dimer Specimen Type Sample Site ABG pH ABG pCO2 ABG pO2 ABG HCO3 ABG O2 Saturation ABG Base Excess Tani Test A-a O2 Gradient Hematocrit Hgb O2 Saturation Carboxyhemoglobin Methemoglobin Total Hemoglobin Ionized Calcium O2 Delivery Device Automobile Glass Technician ID Sodium Potassium Chloride Carbon Dioxide Anion Gap BUN Creatinine GFR Calculation Glucose POC Glucose Calculated Osmolal ity Lactic Acid Calcium Total Bilirubin AST ALT Alkaline Phosphata se Troponin T Baselin e Troponin T 120 Min pilot station 17.93 H Delta Troponin T 1.93 Troponin T Hi Sens 6Hr 15.61 H Troponin T Hi Sens 6Hr Delta -0.39 L C-Reactive Protein NT-Pro-B Natriuret Pep Total Protein Albumin Globulin TSH Pending Urine Color Urine Appearance Urine pH Ur Specific Gravit y Urine Protein Urine Glucose (UA) Urine Ketones Urine Blood Urine Nitrate Urine Bilirubin Urine Urobilinogen Ur Leukocyte Amy ase Urine RBC Urine WBC Ur Squamous Epith Cells Calcium Oxalate Cr ystal Amorphous Sediment Urine Bacteria Urine Mucus Urine Opiates Scre en Ur Barbiturates Sc reen Ur Phencyclidine S crn Ur Amphetamines Sc reen U Benzodiazepines Scrn Urine Cocaine Scre en U Marijuana (THC) Screen Nasal/Oral COVID-1 9 PCR SARS-CoV-2 Ag (Rap id) 05/17/21 05/17/21 05/17/21 23:05 23:00 21:56 WBC RBC Hgb Hct MCV MCH MCHC RDW Plt Count MPV Neut % (Auto) Lymph % (Auto) [place] % (Auto) Eos % (Auto) Baso % (Auto) Neut # (Auto) Lymph # (Auto) [place] # (Auto) Eos # (Auto) Baso # (Auto) Nucleated RBC % (a uto) Nucleated RBCs # D-Dimer Specimen Type Arterial Sample Site Radial, right ABG pH 7.51 H ABG pCO2 36.5 ABG pO2 63.4 L ABG HCO3 28.8 H ABG O2 Saturation 93.5 ABG Base Excess 5.5 H Tani Test Pos A-a O2 Gradient 5.4 Hematocrit 31.2 L Hgb O2 Saturation 91.3 L Carboxyhemoglobin 1.4 Methemoglobin 1.0 Total Hemoglobin 10.2 L Ionized Calcium 1.5 H O2 Delivery Device None Automobile Glass Technician ID Posjo Sodium 137.0 Potassium 3.2 L Chloride Carbon Dioxide Anion Gap BUN Creatinine GFR Calculation Glucose 187.0 H POC Glucose Calculated Osmolal ity Lactic Acid Calcium Total Bilirubin AST ALT Alkaline Phosphata se Troponin T Baselin e Troponin T 120 Min pilot station Delta Troponin T Troponin T Hi Sens 6Hr Troponin T Hi Sens 6Hr Delta C-Reactive Protein NT-Pro-B Natriuret Pep Total Protein Albumin Globulin TSH Urine Color Urine Appearance Urine pH Ur Specific Gravit y Urine Protein Urine Glucose (UA) Urine Ketones Urine Blood Urine Nitrate Urine Bilirubin Urine Urobilinogen Ur Leukocyte Amy ase Urine RBC Urine WBC Ur Squamous Epith Cells Calcium Oxalate Cr ystal Amorphous Sediment Urine Bacteria Urine Mucus Urine Opiates Scre en Positive H Ur Barbiturates Sc reen Negative Ur Phencyclidine S crn Negative Ur Amphetamines Sc reen Negative U Benzodiazepines Scrn Negative Urine Cocaine Scre en Negative U Marijuana (THC) Screen Negative Nasal/Oral COVID-1 9 PCR Pending SARS-CoV-2 Ag (Rap id) 05/17/21 05/17/21 05/17/21 21:56 21:42 21:22 WBC RBC Hgb Hct MCV MCH MCHC RDW Plt Count MPV Neut % (Auto) Lymph % (Auto) [place] % (Auto) Eos % (Auto) Baso % (Auto) Neut # (Auto) Lymph # (Auto) [place] # (Auto) Eos # (Auto) Baso # (Auto) Nucleated RBC % (a uto) Nucleated RBCs # D-Dimer 2.36 H Specimen Type Sample Site ABG pH ABG pCO2 ABG pO2 ABG HCO3 ABG O2 Saturation ABG Base Excess Tani Test A-a O2 Gradient Hematocrit Hgb O2 Saturation Carboxyhemoglobin Methemoglobin Total Hemoglobin Ionized Calcium O2 Delivery Device Automobile Glass Technician ID Sodium Potassium Chloride Carbon Dioxide Anion Gap BUN Creatinine GFR Calculation Glucose POC Glucose 215 H Calculated Osmolal ity Lactic Acid Calcium Total Bilirubin AST ALT Alkaline Phosphata se Troponin T Baselin e Troponin T 120 Min pilot station Delta Troponin T Troponin T Hi Sens 6Hr Troponin T Hi Sens 6Hr Delta C-Reactive Protein NT-Pro-B Natriuret Pep Total Protein Albumin Globulin TSH Urine Color Yellow Urine Appearance Sl hazy Urine pH 5 Ur Specific Gravit y 1.025 Urine Protein Trace Urine Glucose (UA) 2+ Urine Ketones 1+ H Urine Blood Neg Urine Nitrate Negative Urine Bilirubin 1+ H Urine Urobilinogen 8 H Ur Leukocyte Amy ase Negative Urine RBC 0-4 H Urine WBC 0-4 H Ur Squamous Epith Cells 10-15 H Calcium Oxalate Cr ystal 15-25 H Amorphous Sediment 1+ Urine Bacteria 1+ H Urine Mucus 1+ Urine Opiates Scre en Ur Barbiturates Sc reen Ur Phencyclidine S crn Ur Amphetamines Sc reen U Benzodiazepines Scrn Urine Cocaine Scre en U Marijuana (THC) Screen Nasal/Oral COVID-1 9 PCR SARS-CoV-2 Ag (Rap id) 05/17/21 05/17/21 05/17/21 21:22 21:22 21:22 WBC RBC Hgb Hct MCV MCH MCHC RDW Plt Count MPV Neut % (Auto) Lymph % (Auto) [place] % (Auto) Eos % (Auto) Baso % (Auto) Neut # (Auto) Lymph # (Auto) [place] # (Auto) Eos # (Auto) Baso # (Auto) Nucleated RBC % (a uto) Nucleated RBCs # D-Dimer Specimen Type Sample Site ABG pH ABG pCO2 ABG pO2 ABG HCO3 ABG O2 Saturation ABG Base Excess Tani Test A-a O2 Gradient Hematocrit Hgb O2 Saturation Carboxyhemoglobin Methemoglobin Total Hemoglobin Ionized Calcium O2 Delivery Device Automobile Glass Technician ID Sodium 134 L Potassium 3.3 L Chloride 99 Carbon Dioxide 27 Anion Gap 11.3 BUN 18 Creatinine 0.6 GFR Calculation 103.4 Glucose 186 H POC Glucose Calculated Osmolal ity 285 Lactic Acid 1.3 Calcium 10.4 Total Bilirubin 0.8 AST 27 ALT 22 Alkaline Phosphata se 165 H Troponin T Baselin e 16 H Troponin T 120 Min pilot station Delta Troponin T Troponin T Hi Sens 6Hr Troponin T Hi Sens 6Hr Delta C-Reactive Protein 63.8 H NT-Pro-B Natriuret Pep 3592 H Total Protein 7.6 Albumin 3.4 L Globulin 4.2 TSH Urine Color Urine Appearance Urine pH Ur Specific Gravit y Urine Protein Urine Glucose (UA) Urine Ketones Urine Blood Urine Nitrate Urine Bilirubin Urine Urobilinogen Ur Leukocyte Amy ase Urine RBC Urine WBC Ur Squamous Epith Cells Calcium Oxalate Cr ystal Amorphous Sediment Urine Bacteria Urine Mucus Urine Opiates Scre en Ur Barbiturates Sc reen Ur Phencyclidine S crn Ur Amphetamines Sc reen U Benzodiazepines Scrn Urine Cocaine Scre en U Marijuana (THC) Screen Nasal/Oral COVID-1 9 PCR SARS-CoV-2 Ag (Rap id) 05/17/21 05/17/21 05/17/21 20:04 20:00 20:00 WBC RBC Hgb Hct MCV MCH MCHC RDW Plt Count MPV Neut % (Auto) Lymph % (Auto) [place] % (Auto) Eos % (Auto) Baso % (Auto) Neut # (Auto) Lymph # (Auto) [place] # (Auto) Eos # (Auto) Baso # (Auto) Nucleated RBC % (a uto) Nucleated RBCs # D-Dimer Cancelled Specimen Type Sample Site ABG pH ABG pCO2 ABG pO2 ABG HCO3 ABG O2 Saturation ABG Base Excess Tani Test A-a O2 Gradient Hematocrit Hgb O2 Saturation Carboxyhemoglobin Methemoglobin Total Hemoglobin Ionized Calcium O2 Delivery Device Automobile Glass Technician ID Sodium Potassium Chloride Carbon Dioxide Anion Gap BUN Creatinine GFR Calculation Glucose POC Glucose Calculated Osmolal ity Lactic Acid Calcium Total Bilirubin AST ALT Alkaline Phosphata se Troponin T Baselin e Cancelled Troponin T 120 Min pilot station Delta Troponin T Troponin T Hi Sens 6Hr Troponin T Hi Sens 6Hr Delta C-Reactive Protein NT-Pro-B Natriuret Pep Total Protein Albumin Globulin TSH Urine Color Urine Appearance Urine pH Ur Specific Gravit y Urine Protein Urine Glucose (UA) Urine Ketones Urine Blood Urine Nitrate Urine Bilirubin Urine Urobilinogen Ur Leukocyte Amy ase Urine RBC Urine WBC Ur Squamous Epith Cells Calcium Oxalate Cr ystal Amorphous Sediment Urine Bacteria Urine Mucus Urine Opiates Scre en Ur Barbiturates Sc reen Ur Phencyclidine S crn Ur Amphetamines Sc reen U Benzodiazepines Scrn Urine Cocaine Scre en U Marijuana (THC) Screen Nasal/Oral COVID-1 9 PCR SARS-CoV-2 Ag (Rap id) Negative 05/17/21 05/17/21 05/17/21 20:00 20:00 20:00 WBC 6.9 RBC 3.39 L Hgb 9.6 L Hct 30.5 L MCV 90.0 MCH 28.3 MCHC 31.5 RDW 18.2 H Plt Count 127 L MPV 12.0 H Neut % (Auto) 86.7 Lymph % (Auto) 4.9 [place] % (Auto) 6.4 Eos % (Auto) 0.1 Baso % (Auto) 0.3 Neut # (Auto) 6.00 Lymph # (Auto) 0.3 L [place] # (Auto) 0.4 Eos # (Auto) 0.0 Baso # (Auto) 0.0 Nucleated RBC % (a uto) 0 Nucleated RBCs # 0.0 D-Dimer Specimen Type Sample Site ABG pH ABG pCO2 ABG pO2 ABG HCO3 ABG O2 Saturation ABG Base Excess Tani Test A-a O2 Gradient Hematocrit Hgb O2 Saturation Carboxyhemoglobin Methemoglobin Total Hemoglobin Ionized Calcium O2 Delivery Device Automobile Glass Technician ID Sodium Cancelled Potassium Cancelled Chloride Cancelled Carbon Dioxide Cancelled Anion Gap Cancelled BUN Cancelled Creatinine Cancelled GFR Calculation Cancelled Glucose Cancelled POC Glucose Calculated Osmolal ity Cancelled Lactic Acid Cancelled Calcium Cancelled Total Bilirubin Cancelled AST Cancelled ALT Cancelled Alkaline Phosphata se Cancelled Troponin T Baselin e Troponin T 120 Min pilot station Delta Troponin T Troponin T Hi Sens 6Hr Troponin T Hi Sens 6Hr Delta C-Reactive Protein Cancelled NT-Pro-B Natriuret Pep Cancelled Total Protein Cancelled Albumin Cancelled Globulin Cancelled TSH Urine Color Urine Appearance Urine pH Ur Specific Gravit y Urine Protein Urine Glucose (UA) Urine Ketones Urine Blood Urine Nitrate Urine Bilirubin Urine Urobilinogen Ur Leukocyte Amy ase Urine RBC Urine WBC Ur Squamous Epith Cells Calcium Oxalate Cr ystal Amorphous Sediment Urine Bacteria Urine Mucus Urine Opiates Scre en Ur Barbiturates Sc reen Ur Phencyclidine S crn Ur Amphetamines Sc reen U Benzodiazepines Scrn Urine Cocaine Scre en U Marijuana (THC) Screen Nasal/Oral COVID-1 9 PCR SARS-CoV-2 Ag (Rap id) Vitals: Last Vital Signs Temp 97.6 F 05/17/21 19:38 Pulse 102 H 05/18/21 07:49 Resp 38 H 05/18/21 07:49 BP 138/62 05/18/21 07:49 Pulse Ox 93 05/18/21 07:49 Discharge Plan Discharge Patient Disposition: Xfer Short-Term Hosp Condition: Stable Prescriptions: New furosemide 10 mg/mL Solution 40 mg IVP Q12H Qty: 60 RF: 0 Continued furosemide 40 mg tablet 40 mg PO QAM Qty: 30 RF: 0 potassium chloride 10 mEq capsule, extended release 10 meq PO DAILY Qty: 30 RF: 0 Lantus Solostar U-100 Insulin 100 unit/mL (3 mL) insulin pen 80 unit SUBCUT DAILY MDD see pharmacy comment Qty: 30 RF: 2 insulin lispro [Humalog KwikPen Insulin] 100 unit/mL insulin pen See Rx Instructions .ROUTE .COMPLEX MDD see pharmacy comment Qty: 15 RF: 2 hydrocodone-acetaminophen 5-325 mg tablet 1 - 2 tab PO Q4H PRN (Reason: pain) 10 Days Qty: 60 RF: 0 Stimulant Laxative Plus 8.6-50 mg tablet 1 tab PO BID RF: 0 Bydureon 2 mg/0.65 mL Pen Injector 2 mg SUBCUT Q7D RF: 0 venlafaxine 75 mg capsule,extended release 24hr 75 mg PO DAILY RF: 0 glyburide 5 mg tablet 10 mg PO BID RF: 0 famotidine 20 mg tablet 20 mg PO DAILY RF: 0 pravastatin 80 mg tablet 80 mg PO DAILY RF: 0 captopril 50 mg tablet 50 mg PO BEDTIME RF: 0 gabapentin 300 mg capsule 600 mg PO BID RF: 0 ergocalciferol (vitamin D2) 1,250 mcg (50,000 unit) capsule 1,250 mcg PO Q7D RF: 0 levothyroxine 112 mcg tablet 112 mcg PO DAILY RF: 0 ropinirole 4 mg tablet 8 mg PO DAILY RF: 0 Janumet 50-1,000 mg tablet 1 tab PO DAILY RF: 0 Discontinued hydrochlorothiazide 12.5 mg tablet 12.5 mg PO DAILY RF: 0 Discharge Orders: Discharge Order (Routine); Ordered 05/18/21 Ordered By: Roman Rivera Referrals: Sydnee Rivero FNP [Primary Care Provider] - Discharge Diet: Cardiac Discharge Activity: Limit activity as instructed Discharge Attestations Time Spent in Discharge Care*: greater than 30 min Specific Discharge Activities: educating patient, educating and/or supporting family/caregiver, discussing with pcp/other providers, discussing with correctional casework specialist/social workers/dc planners, documenting/other paperwork and evaluating patient/reviewing data Quality Metrics Clinical Quality Measures During this hospital stay, did patient experience: None Coding Level of Care Code Acute Chg FW DC note Diagnoses Altered mental status R40.0 Altered mental status type: somnolence Acute confusion R41.0 CHF (congestive heart failure) I50.9 Heart failure chronicity: unspecified Heart failure type: unspecified Dyspnea R06.02 Dyspnea type: shortness of breath
[2021-05-18 12:39] LABS: Thyroid Stimulating Hormone 1.73 uIU/mL (0.27-4.20)
--- NOTE | 2021-05-18 12:59 | PC.NURSE ---
patient placed back in bed with 2 person assist, tolerated well. lasix was given as ordered. blood sugar was obtained as ordered. result were 275. lab results were given to primary nurse and she was going to administer insulin per protocol. no further needs were voiced by patient or at this time.
[2021-05-18 13:01] LABS: Glucose Point of Care 275 mg/dL (70-110)
[2021-05-18] MEDS: ropinirole 2 mg Tablet 8 MG PO (13:25)
[2021-05-18] MEDS: levothyroxine 112 mcg Tablet PO (13:25)
[2021-05-18] MEDS: venlafaxine ER (24HR) 75 mg Capsule PO (13:26)
[2021-05-18 13:44] VITALS: BP 158/72; PULSE 107; RESP 31; O2SAT 96
[2021-05-18 13:57] LABS: Coronavirus Test Green County Not Detected
[2021-05-18 15:13] VITALS: BP 137/66; PULSE 113; RESP 24; O2SAT 93
== END 2021-05-18 15:13 | disposition short-term general hospital (02) | DRG 292 ==
LOC: ER 05-18 01:08 → ER IP 05-18 08:00
PROVIDERS: Emergency Medicine; Admitting Provider Student in an Organized Health Care Education/Training Program; Emergency Provider Emergency Medicine; PCP Nurse Practitioner Family; Visit Provider Internal Medicine
DX: I11.0 Hypertensive heart disease with heart failure (principal); C90.00 Multiple myeloma not having achieved remission; E11.9 Type 2 diabetes mellitus without complications; E78.5 Hyperlipidemia, unspecified; E03.9 Hypothyroidism, unspecified; G47.33 Obstructive sleep apnea (adult) (pediatric); G25.81 Restless legs syndrome; Z79.899 Other long term (current) drug therapy; Z79.4 Long term (current) use of insulin; Z79.891 Long term (current) use of opiate analgesic; I50.23 Acute on chronic systolic (congestive) heart failure
CPT/HCPCS: 36415; 36416; 36600; 51702; 71045; 71275; 80051; 80053; 80306; 81001; 82330; 82805; 82962; 83605; 83880; 84443; 84484; 85025; 85378; 86140; 87040; 87426; 87635; 93005; 96372; 96374; 96376; 99285; C8929; J1815; J1940; Q9967

== ENCOUNTER 2021-07-03 11:36 | Outpatient (CLI) | payer BC, SELFPAY ==
--- NOTE | 2021-07-03 11:44 | XR_ITS ---
WS: [id number] LEFT SHOULDER: 2 VIEW(S) TECHNIQUE: Internal and external rotation. HISTORY: R07.81 - Pleurodynia COMPARISON: None available. Osteopenia. Calcific densities adjacent to the humeral head with the largest measuring 5 mm. Mild gricel rowing of the glenohumeral joint and AC joint. Remote appearing rib fractures in the posterior lateral LEFT thorax. There are several contiguous rib s that are fractured. XR/XR shoulder LT min 2V* [id number] IMPRESSION: 1. Osteopenia. 2. No shoulder fracture. 3. LEFT calcific tendinitis. 4. Multiple nondisplaced posterior lateral LEFT rib fractures.
--- NOTE | 2021-07-03 11:44 | XR_ITS ---
WS: [id number] CHEST 2 VIEWS HISTORY: R07.81 - Pleurodynia COMPARISON: 9 05/17/2021 Lungs: Linear areas of atelectasis in the lower lung painter. Minimal blunting of the LEFT costophreni c angle. Lung volumes are decreased due to poor inspiration. Cardiac size: Normal. Mediastinum/Aorta: Mild atherosclerosis aorta. Bones: Diffuse osteopenia. There are multiple bilateral rib lesions. These are probably fractures. In determinate for fracture involving the RIGHT greater trochanter. Abnormal density within the RIGHT sc apula. Vertebral planar compression fractures at what is probably T12 and L1. XR/XR chest 2V* [id number] IMPRESSION: 1. Severe osteopenia. 2. Subsegmental areas of atelectasis in the lower lung painter and decreased in spiration. 3. Rib lesions bilaterally probably rib fractures of various ages. Cannot excl ude pathological fractures. Correlate with patient's history. 4. Indeterminate for fracture involving the RIGHT greater tuberosity.
--- NOTE | 2021-07-03 11:44 | XR_ITS ---
WS: [email or web address] BILATERAL RIBS, MULTIPLE VIEWS HISTORY: R07.81 - Pleurodynia COMPARISON: 04/04/2021 Ribs: Bones are osteopenic. There are multiple rib fractures in various stages of healing bilaterally . There is an additional fracture with healing involving the RIGHT scapula. Numerous lytic lesions wi thin the bones greatest involving the proximal RIGHT humerus and also the ribs. Suspect multiple myel ignacia. Right-sided rib fractures involving at least the fifth, sixth, seventh and eighth ribs. Fracture s on the LEFT include third sixth and seventh ribs. There are probably other additional fractures whi ch are overlapping. Lungs and mediastinum: No pneumothorax. Fracture through the RIGHT humeral head. XR/XR ribs BI 3V* [id number] IMPRESSION: 1. Numerous bilateral rib fractures in various stages of healing. Probably pat hological fractures. There are multiple lytic areas within the ribs and visuali zed bones of the thorax suggesting multiple myeloma. 2. Healing fracture which may be pathologic involving the RIGHT scapula and a nondisplaced fracture in the RIGHT humeral head.
== END 2021-07-03 11:37 | disposition home or self-care (01) ==
PROVIDERS: PCP Nurse Practitioner Family; Visit Provider Nurse Practitioner Family
DX: M25.511 Pain in right shoulder (principal); M25.512 Pain in left shoulder; R07.81 Pleurodynia; M85.80 Other specified disorders of bone density and structure, unspecified site; M65.222 Calcific tendinitis, left upper arm; S22.42XA Multiple fractures of ribs, left side, initial encounter for closed fracture; X58.XXXA Exposure to other specified factors, initial encounter; J98.11 Atelectasis
CPT/HCPCS: 71046; 71110; 73030

== ENCOUNTER → 2021-08-22 11:46 | Outpatient (BNVA) | payer BC, SELFPAY | PROVIDERS: PCP Nurse Practitioner Family; Visit Provider Nurse Practitioner Family | DX: E03.9 Hypothyroidism, unspecified (principal); E11.65 Type 2 diabetes mellitus with hyperglycemia; E55.9 Vitamin D deficiency, unspecified; E78.5 Hyperlipidemia, unspecified; Z79.4 Long term (current) use of insulin | CPT/HCPCS: 80053; 80061; 82306; 83036; 84443; 85025 ==

== ENCOUNTER → 2021-11-29 10:36 | Outpatient (BNVA) | payer BC, SELFPAY | PROVIDERS: PCP Nurse Practitioner Family; Visit Provider Nurse Practitioner Family | DX: E11.65 Type 2 diabetes mellitus with hyperglycemia (principal); E03.9 Hypothyroidism, unspecified; Z79.4 Long term (current) use of insulin; E55.9 Vitamin D deficiency, unspecified; E78.5 Hyperlipidemia, unspecified; Z12.4 Encounter for screening for malignant neoplasm of cervix | CPT/HCPCS: 80053; 80061; 82043; 82306; 82607; 83036; 83735; 84443; 85025; 87624 ==

== ENCOUNTER → 2022-03-01 11:13 | Outpatient (BNVA) | payer BC, SELFPAY | PROVIDERS: PCP Nurse Practitioner Family; Visit Provider Internal Medicine Hematology & Oncology | DX: C90.00 Multiple myeloma not having achieved remission (principal) | CPT/HCPCS: 80053; 85025 ==

== ENCOUNTER → 2022-04-02 11:18 | Outpatient (BNVA) | payer BC, SELFPAY | PROVIDERS: PCP Nurse Practitioner Family; Visit Provider Internal Medicine Hematology & Oncology | DX: C90.00 Multiple myeloma not having achieved remission (principal) | CPT/HCPCS: 80053; 85025 ==

== ENCOUNTER 2022-05-09 12:51 | Outpatient (CLI) | payer BC, SELFPAY ==
--- NOTE | 2022-05-09 13:09 | XR_ITS ---
WS: [email or web address] SCREENING DEXA SCAN [place] CLINICAL INFORMATION: Z78.0 - Asymptomatic menopausal state COMPARISON: None. FINDINGS: The L1-L4 bone mineral density measures 1.15. This corresponds to a T score score of -0.4 and Z score of -0.2. Left femoral neck bone mineral density measures 0.633 g/cm2. This corresponds to a T score of -3.0 an d Z score of -2.7. Right femoral neck bone mineral density measures 0.768 g/cm2. This corresponds to a T score -1.9of an d Z score of -1.7. Mean femoral neck bone mineral density measures 0.701 g/cm2. This corresponds to a T score of -2.4 an d Z score of -2.2. XR/XR DEXA axial skeleton* [id number] IMPRESSION: Osteoporosis in the femoral necks. Normal bone mineralization in the lumbar spi ne although spuriously elevated due to endplate sclerosis. Patient's FRAX calculated 10 year probability for major osteoporotic fracture i s 27.7 % and osteoporotic hip fracture is 11.7%.
--- NOTE | 2022-05-09 13:11 | MM_ITS ---
WS: [email or web address] BILATERAL 3D TOMOSYNTHESIS DIGITAL SCREENING MAMMOGRAPHY WITH CAD CLINICAL INFORMATION: SCREENING HISTORY: Screening mammogram. No current complaints. COMPARISON: TECHNIQUE: Bilateral CC and MLO views. FINDINGS: Scattered fibroglandular densities bilaterally. Punctate and lucent centered calcifications. No suspi cious focal mass, asymmetry, calcifications, or architectural distortion. No evidence of malignancy. MM/[place] [id number] IMPRESSION: BI-RADS: 2-Benign FOLLOW UP: 1 Year Follow-up Recommend return to annual screening mammography.
== END 2022-05-09 12:52 | disposition home or self-care (01) ==
PROVIDERS: PCP Nurse Practitioner Family; Visit Provider Nurse Practitioner Family
DX: Z12.31 Encounter for screening mammogram for malignant neoplasm of breast (principal)
CPT/HCPCS: 77063; 77067; 77080

== ENCOUNTER → 2022-06-08 08:48 | Outpatient (BNVA) | payer BC, SELFPAY | PROVIDERS: PCP Nurse Practitioner Family; Visit Provider Nurse Practitioner Family | DX: C90.00 Multiple myeloma not having achieved remission (principal); E11.9 Type 2 diabetes mellitus without complications; I10 Essential (primary) hypertension; E55.9 Vitamin D deficiency, unspecified; E78.5 Hyperlipidemia, unspecified; E03.9 Hypothyroidism, unspecified; E83.42 Hypomagnesemia | CPT/HCPCS: 80053; 80061; 82043; 82306; 83036; 83735; 84443; 85025 ==

== ENCOUNTER → 2022-06-15 10:29 | Outpatient (BNVA) | payer BC, SELFPAY | PROVIDERS: PCP Nurse Practitioner Family; Visit Provider Nurse Practitioner Family | DX: R19.7 Diarrhea, unspecified (principal) | CPT/HCPCS: 87338; 87493; 87506 ==

== ENCOUNTER → 2022-07-10 09:00 | Outpatient (BNVA) | payer BC, SELFPAY | PROVIDERS: PCP Nurse Practitioner Family; Visit Provider Internal Medicine Hematology & Oncology | DX: Z01.89 Encounter for other specified special examinations (principal) | CPT/HCPCS: 80053; 85025 ==

== ENCOUNTER → 2022-07-12 11:07 | Outpatient (BNVA) | payer BC, SELFPAY | PROVIDERS: PCP Nurse Practitioner Family; Visit Provider Internal Medicine Hematology & Oncology | DX: C90.00 Multiple myeloma not having achieved remission (principal) | CPT/HCPCS: 85025 ==

== ENCOUNTER → 2022-07-30 11:40 | Outpatient (BNVA) | payer BC, SELFPAY | PROVIDERS: PCP Nurse Practitioner Family; Visit Provider Internal Medicine Hematology & Oncology | DX: C90.00 Multiple myeloma not having achieved remission (principal); C85.90 Non-Hodgkin lymphoma, unspecified, unspecified site | CPT/HCPCS: 80053; 82784; 83883; 84155; 84156; 84165; 85025 ==

== ENCOUNTER → 2022-08-08 09:18 | Outpatient (BNVA) | payer BC, SELFPAY | PROVIDERS: PCP Nurse Practitioner Family; Visit Provider Internal Medicine Hematology & Oncology | DX: C90.00 Multiple myeloma not having achieved remission (principal) | CPT/HCPCS: 82570; 84155; 84156; 84166; 86334 ==

== ENCOUNTER → 2022-08-15 10:00 | Outpatient (BNVA) | payer BC, SELFPAY | PROVIDERS: PCP Nurse Practitioner Family; Visit Provider Internal Medicine Hematology & Oncology | DX: C90.00 Multiple myeloma not having achieved remission (principal) | CPT/HCPCS: 80053; 85025 ==

== ENCOUNTER → 2022-09-12 10:17 | Outpatient (BNVA) | payer BC, SELFPAY | PROVIDERS: PCP Nurse Practitioner Family; Visit Provider Internal Medicine Hematology & Oncology | DX: C90.00 Multiple myeloma not having achieved remission (principal) | CPT/HCPCS: 80053 ==

== ENCOUNTER → 2022-10-17 09:00 | Outpatient (BNVA) | payer BC, SELFPAY | PROVIDERS: PCP Nurse Practitioner Family; Visit Provider Internal Medicine Hematology & Oncology | DX: C90.00 Multiple myeloma not having achieved remission (principal) | CPT/HCPCS: 80053; 82570; 84156; 84166; 85025 ==

== ENCOUNTER → 2022-10-30 13:09 | Outpatient (BNVA) | payer BC, SELFPAY | PROVIDERS: PCP Nurse Practitioner Family; Visit Provider Internal Medicine Hematology & Oncology | DX: C90.00 Multiple myeloma not having achieved remission (principal) | CPT/HCPCS: 84156 ==

== ENCOUNTER → 2023-01-08 10:15 | Outpatient (BNVA) | payer BC, SELFPAY | PROVIDERS: PCP Nurse Practitioner Family; Visit Provider Internal Medicine Hematology & Oncology | DX: C90.00 Multiple myeloma not having achieved remission (principal) | CPT/HCPCS: 80053; 80061; 82570; 82784; 83883; 84156; 84166; 85025 ==

== ENCOUNTER → 2023-01-09 10:30 | Outpatient (BNVA) | payer BC, SELFPAY | PROVIDERS: PCP Nurse Practitioner Family; Visit Provider Internal Medicine Hematology & Oncology | DX: C90.00 Multiple myeloma not having achieved remission (principal); E11.9 Type 2 diabetes mellitus without complications | CPT/HCPCS: 84155; 84165 ==

== ENCOUNTER → 2023-01-10 12:57 | Outpatient (BNVA) | payer BC, SELFPAY | PROVIDERS: PCP Nurse Practitioner Family; Visit Provider Internal Medicine Hematology & Oncology | DX: C90.00 Multiple myeloma not having achieved remission (principal) | CPT/HCPCS: 84156; 84166 ==

== ENCOUNTER → 2023-02-28 11:32 | Outpatient (BNVA) | payer BC, SELFPAY | PROVIDERS: PCP Nurse Practitioner Family; Visit Provider Nurse Practitioner Family | DX: E03.9 Hypothyroidism, unspecified (principal) | CPT/HCPCS: 84439; 84443 ==

== ENCOUNTER → 2023-04-18 09:55 | Outpatient (BNVA) | payer BC, SELFPAY | PROVIDERS: PCP Nurse Practitioner Family; Visit Provider Internal Medicine Hematology & Oncology | DX: C90.00 Multiple myeloma not having achieved remission (principal) | CPT/HCPCS: 80053; 82570; 82784; 83883; 84155; 84156; 84165; 84166; 85025 ==

== ENCOUNTER 2023-09-03 10:42 | Outpatient (CLI) | payer BC, SELFPAY ==
--- NOTE | 2023-09-03 10:45 | MM_ITS ---
WS: [email or web address] BILATERAL 3D TOMOSYNTHESIS DIGITAL SCREENING MAMMOGRAPHY WITH CAD CLINICAL INFORMATION: SCREENING HISTORY: Screening mammogram. No current complaints. COMPARISON: 2021 TECHNIQUE: Bilateral CC and MLO views. FINDINGS: Scattered fibroglandular densities bilaterally. No suspicious focal mass, asymmetry, calcifications, or architectural distortion. No evidence of malignancy. Punctate and lucent centered calcifications. Secretory calcifications. IMPRESSION: MM/[place] [id number] BI-RADS: 2-Benign FOLLOW UP: 1 Year Follow-up Recommend return to annual screening mammography.
== END 2023-09-03 10:43 | disposition home or self-care (01) ==
LOC: RAD 10:42
PROVIDERS: PCP Nurse Practitioner Family; Visit Provider Nurse Practitioner Family
DX: Z12.31 Encounter for screening mammogram for malignant neoplasm of breast (principal)
CPT/HCPCS: 77063; 77067

== ENCOUNTER → 2023-09-19 12:41 | Outpatient (BNVA) | payer BC, SELFPAY | PROVIDERS: PCP Nurse Practitioner Family; Visit Provider Nurse Practitioner Family | DX: E11.65 Type 2 diabetes mellitus with hyperglycemia (principal); Z79.4 Long term (current) use of insulin; I10 Essential (primary) hypertension; E55.9 Vitamin D deficiency, unspecified | CPT/HCPCS: 80053; 80061; 82306; 82607; 83036; 83735; 84443; 85025 ==

== ENCOUNTER 2023-10-25 06:42 | Day surgery (SDC) | payer BC, SELFPAY ==
[2023-10-25 07:02] VITALS: BP 133/84; PULSE 81; RESP 18; TEMP 36.7; O2SAT 98; BMI 41.5
--- NOTE | 2023-10-25 07:12 | P.HP_ITS ---
Providers/Chief Complaint Primary Care Provider: ARI Ley Chief Complaint: Z12.11 History of Present Illness Jaylyn Ellis is a 58 year old female Review of Systems General: Reports: 10 or more systems reviewed and unremarkable except in HPI and below Medications/Allergies Home Medications Medication Instructions Recorded Confirmed Last Taken Type aspirin 81 mg tablet,delayed 81 mg PO DAILY 11/29/21 10/25/23 1 Week Ago History release (Adult Low Dose Aspirin) ~10/18/23 hydrocodone 5 mg-acetaminophen 325 1 tab PO Q8H PRN pain 30 days #90 06/21/22 10/23/23 3 Months Ago Rx mg tablet tabs ~07/23/23 pen needle, diabetic 31 gauge x #200 ea 09/23/22 10/10/23 Unknown Rx /16 (Comfort EZ Pen [place]) flash glucose sensor (FreeStyle #2 ea 10/16/22 10/10/23 Unknown Rx Vonnie 14 Day Sensor kit) insulin glargine 100 unit/mL (3 35 unit (0.35 mL) SUBCUT DAILY #30 02/28/23 10/23/23 10/24/23 Rx mL) subcutaneous pen (Lantus mL Solostar U-100 Insulin) tizanidine 4 mg tablet 4 mg PO Q8H PRN muscle spasticity 02/28/23 10/23/23 10/24/23 Rx #30 tabs semaglutide 0.25 mg or 0.5 mg (2 0.25 mg (0.368 mL) SUBCUT .weekly 09/19/23 10/23/23 Unknown Rx mg/3 mL) subcutaneous pen injector #3 mL (Ozempic) ergocalciferol (vitamin D2) 1,250 1,250 mcg PO .weekly #3 caps 09/26/23 10/25/23 10/24/23 Rx mcg (50,000 unit) capsule gabapentin 400 mg capsule 400 mg PO QID #240 caps 10/10/23 10/23/23 10/24/23 Rx captopril 50 mg tablet 50 mg PO BEDTIME 10/23/23 10/23/23 10/24/23 History furosemide 20 mg tablet 20 mg PO DAILY 10/23/23 10/23/23 10/24/23 History levothyroxine 75 mcg tablet 75 mcg PO DAILY 10/23/23 10/23/23 10/24/23 History ondansetron HCl 4 mg tablet 4 mg PO TID PRN Nausea And Vomiting 10/23/23 10/25/23 2 Months Ago History ~08/25/23 pravastatin 80 mg tablet 80 mg PO BEDTIME 10/23/23 10/23/23 10/24/23 History primidone 50 mg tablet (Mysoline) 100 mg PO TID 10/23/23 10/23/23 10/24/23 History ropinirole 4 mg tablet 4 mg PO BEDTIME 10/23/23 10/23/23 10/24/23 History sitagliptin phosphate 50 1 tab PO BID 10/23/23 10/23/23 10/24/23 History mg-metformin 1,000 mg tablet (Janumet) venlafaxine 150 mg 150 mg PO DAILY 10/23/23 10/23/23 10/24/23 History capsule,extended release 24 hr Allergies Allergy/AdvReac Type Severity Reaction Status Date / Time pseudoephedrine Allergy Mild ADR-Itching Verified 10/25/23 06:57 [From Allerfed (pseudoephedrine)] Penicillins Allergy Unknown ADR-Itching Verified 10/25/23 06:57 PFSH Acute PFSH: Medical History Multiple myeloma COVID-08 May 2020 NATALIE (obstructive sleep apnea) Nocturnal hypoxemia Diabetes mellitus Hypertension Restless leg syndrome Hypothyroid Hyperlipidemia Vitamin D deficiency Surgical History Hx of appendectomy Hx of tonsillectomy Hx of knee surgery Social History Smoking and tobacco/nicotine status: never used tobacco/nicotine Second hand smoke exposure: No Alcohol intake: never Substance/Drug Use: never Caregiver/support person: Yes Lives independently: Yes Household members: spouse Housing: House Marital status: service: No Current occupational status: employed Current occupation: [employer] Current gender identity: Female Special lina needs: No Agree to transfusion: Yes Vitals/I&O/Wt Last Vital Signs Temp 98.0 F 10/25/23 07:02 Pulse 81 10/25/23 07:02 Resp 18 10/25/23 07:02 BP 133/84 10/25/23 07:02 Pulse Ox 98 01/05/24 07:02 O2 Del Method Room Air 10/25/23 07:02 Weight last 48 hrs Weight 220 lb A&P Assessment and plan (1) Screening for colon cancer: Plan Colonoscopy The risks and benefits of the procedure, including bleeding, infection, intestinal perforation requiring surgery, missed lesion were explained to the patient. The patient is understanding of the risks and wishes to proceed. Attestations Medical Necessity Statement*: Home Coding Level of Care Code Acute Code for Chg Fwd Diagnoses Screening for colon cancer Z12.11
[2023-10-25] MEDS: sodium chloride 0.9% 1,000 ML 30 ML IV (07:15)
[2023-10-25 07:19] LABS: Glucose Point of Care 214 mg/dL (70-110)
--- NOTE | 2023-10-25 07:27 | ANES.PREANE2 ---
Pre-Anesthetic Assessment Height/Weight: Height 1.55 m Weight 99.79 kg Temp Pulse Resp BP Pulse Ox O2 Del Method 98.0 F 81 18 133/84 98 Room Air 10/25/23 07:02 10/25/23 07:02 10/25/23 07:02 10/25/23 07:02 10/25/23 07:02 10/25/23 07:02 Preop Diagnosis: screening Operation Date: 10/25/23 08:00 Proposed Procedures p Colonoscopy [id number] [id number],z12.11(Not Applicable) - Ramin Erickson, DO Was Beta [place] taken within 24 hours: N/A Was Clonidine taken within 24 hours: N/A Last intake: Intake Last Liquid Date 10/22/23 Last Liquid Time 21:00 Last Solid Date 10/23/23 Last Solid Time 20:00 Social No alcohol and No tobacco Exam alert and oriented x 3 Airway Submandibular: within normal limits Cervical ROM: within normal limits Mallampati: Class II Dentition: other Comments: Comments: lower incisors loose, missing random teeth History/ROS No significant history except as noted Pulmonary Sleep Apnea CV/HEM Congestive Heart Failure (on lasix) and Murmur None reported Hepatic None reported GI Gastroesophageal Reflux Disease (situational; mild) Metabolic Diabetes Mellitus, Morbid Obesity and Thyroid Disease Musc/skel Weakness (multiple myeloma-on maintanence; osteoporosis) Neuropsych None reported Anesthetic Plan ASA status: 3 Anesthesia: MAC Risk of > 500 ml blood loss (7ml/kg in children): No Medications/Allergies Home Medications Medication Instructions Recorded Confirmed Last Taken Type aspirin 81 mg tablet,delayed 81 mg PO DAILY 11/29/21 10/25/23 1 Week Ago History release (Adult Low Dose Aspirin) ~10/18/23 hydrocodone 5 mg-acetaminophen 325 1 tab PO Q8H PRN pain 30 days #90 06/21/22 10/23/23 3 Months Ago Rx mg tablet tabs ~07/23/23 pen needle, diabetic 31 gauge x #200 ea 09/23/22 10/10/23 Unknown Rx 5/16 (Comfort EZ Pen [place]) flash glucose sensor (FreeStyle #2 ea 10/16/22 10/10/23 Unknown Rx Vonnie 14 Day Sensor kit) insulin glargine 100 unit/mL (3 35 unit (0.35 mL) SUBCUT DAILY #30 02/28/23 10/23/23 10/24/23 Rx mL) subcutaneous pen (Lantus mL Solostar U-100 Insulin) tizanidine 4 mg tablet 4 mg PO Q8H PRN muscle spasticity 02/28/23 10/23/23 10/24/23 Rx #30 tabs semaglutide 0.25 mg or 0.5 mg (2 0.25 mg (0.368 mL) SUBCUT .weekly 09/19/23 10/23/23 Unknown Rx mg/3 mL) subcutaneous pen injector #3 mL (Ozempic) ergocalciferol (vitamin D2) 1,250 1,250 mcg PO .weekly #3 caps 09/26/23 10/25/23 10/24/23 Rx mcg (50,000 unit) capsule gabapentin 400 mg capsule 400 mg PO QID #240 caps 10/10/23 10/23/23 10/24/23 Rx captopril 50 mg tablet 50 mg PO BEDTIME 10/23/23 10/23/23 10/24/23 History furosemide 20 mg tablet 20 mg PO DAILY 10/23/23 10/23/23 10/24/23 History levothyroxine 75 mcg tablet 75 mcg PO DAILY 10/23/23 10/23/23 10/24/23 History ondansetron HCl 4 mg tablet 4 mg PO TID PRN Nausea And Vomiting 10/23/23 10/25/23 2 Months Ago History ~08/25/23 pravastatin 80 mg tablet 80 mg PO BEDTIME 10/23/23 10/23/23 10/24/23 History primidone 50 mg tablet (Mysoline) 100 mg PO TID 10/23/23 10/23/23 10/24/23 History ropinirole 4 mg tablet 4 mg PO BEDTIME 10/23/23 10/23/23 10/24/23 History sitagliptin phosphate 50 1 tab PO BID 10/23/23 10/23/23 10/24/23 History mg-metformin 1,000 mg tablet (Janumet) venlafaxine 150 mg 150 mg PO DAILY 10/23/23 10/23/23 10/24/23 History capsule,extended release 24 hr Allergies Allergy/AdvReac Type Severity Reaction Status Date / Time pseudoephedrine Allergy Mild ADR-Itching Verified 10/25/23 06:57 [From Allerfed (pseudoephedrine)] Penicillins Allergy Unknown ADR-Itching Verified 10/25/23 06:57 Current Medications Generic Name Dose Route Start Last Admin Trade Name Jake PRN Reason Stop Dose Admin Sodium Chloride 1,000 mls @ 30 mls/hr 10/25/23 07:00 10/25/23 07:15 Sodium Chloride 0.9% IV 10/26/23 06:59 30 mls/hr .Q24H NELLIE Administration PFSH Anesthesia Medical History Multiple myeloma COVID-08 May 2020 NATALIE (obstructive sleep apnea) Nocturnal hypoxemia Diabetes mellitus Hypertension Restless leg syndrome Hypothyroid Hyperlipidemia Vitamin D deficiency Surgical History Hx of appendectomy Hx of tonsillectomy Hx of knee surgery Social History Smoking and tobacco/nicotine status: never used tobacco/nicotine Second hand smoke exposure: No Alcohol intake: never Substance/Drug Use: never Caregiver/support person: Yes Lives independently: Yes Household members: spouse Housing: House Marital status: service: No Current occupational status: employed Current occupation: [employer] Current gender identity: Female Special lina needs: No Agree to transfusion: Yes Data Anesthesia Cardiac Studies: Echocardiogram 05/18/21
[2023-10-25 08:02] VITALS: BP 137/34; PULSE 78; RESP 20; TEMP 36.2; O2SAT 94
--- NOTE | 2023-10-25 13:08 | ANE.PACU2 ---
Inpatient post-anesthesia follow up: Airway intact: Yes Vital signs: Temperature 97.2 F Pulse Rate 78 Respiratory Rate 20 Blood Pressure 137/34 Pulse Oximetry 94 Oxygen Delivery Me thod Room Air Oxygen Flow Rate Fraction of Inspir ed Oxygen Hydration adequate: Yes Nausea and vomiting: No Pain level: 2 Mental status: Baseline
== END 2023-10-25 08:53 | disposition home or self-care (01) ==
PROVIDERS: PCP Nurse Practitioner Family; Visit Provider Surgery
PROC: 0DJD8ZZ Inspection of Lower Intestinal Tract, Via Natural or Artificial Opening Endoscopic (ICD-10-PCS; CPT 45378; principal; 2023-10-25 08:00)
DX: Z12.11 Encounter for screening for malignant neoplasm of colon (principal); K64.8 Other hemorrhoids; Z79.82 Long term (current) use of aspirin; Z79.4 Long term (current) use of insulin; Z86.16 Personal history of COVID-19; E11.9 Type 2 diabetes mellitus without complications; E03.9 Hypothyroidism, unspecified; E78.5 Hyperlipidemia, unspecified; I11.0 Hypertensive heart disease with heart failure; I50.9 Heart failure, unspecified; E66.01 Morbid (severe) obesity due to excess calories; Z68.41 Body mass index [BMI] 40.0-44.9, adult; Z85.79 Personal history of other malignant neoplasms of lymphoid, hematopoietic and related tissues; G47.33 Obstructive sleep apnea (adult) (pediatric)
CPT/HCPCS: 36416; 45378; 82962; J2704; J7030

== ENCOUNTER 2023-12-31 12:01 | Emergency (ER) | payer BC, SELFPAY ==
[2023-12-31 12:26] VITALS: BP 139/81; PULSE 94; RESP 16; TEMP 36.9; O2SAT 96; BMI 39.1
--- NOTE | 2023-12-31 12:37 | XRR_ITS ---
PROCEDURE INFORMATION: Exam: XR Right Hip Exam date and time: 12/31/2023 12:53 PM Age: 58 years old Clinical indication: Hip pain; Right hip; Additional info: Pain, HX multiple myeloma TECHNIQUE: Imaging protocol: Radiologic exam of the right hip. Views: 1 view hip with pelvis when performed. COMPARISON: NM bone scan whole body* [id number] 04/21/2021 7:20 AM FINDINGS: Bones/joints: Unremarkable. No acute fracture. Negative for lytic bone abnormality Soft tissues: Unremarkable. XR/XR hip RT 2-3V wo/w pel* [id number] IMPRESSION: No acute findings.
--- NOTE | 2023-12-31 12:46 | ED_ITS ---
HPI - Extremity Problem General: Chief complaint: Extremity Injury, Lower Stated complaint: right hip pain Time Seen by Provider: 12/31/23 12:38 History of Present Illness: Patient presents to the ER with complaints of right hip pain. Patient states last night she was up walking across the kitchen and felt a pop in her right hip region. Now she is unable to ambulate on her leg. Patient states I think is broken. Patient has a history of osteoporosis and multiple myeloma. Review of Systems General: Reports: 10 or more systems reviewed and unremarkable except in HPI and below PFSH ED PFSH: Medical History Multiple myeloma COVID-08 May 2020 NATALIE (obstructive sleep apnea) Nocturnal hypoxemia Diabetes mellitus Hypertension Restless leg syndrome Hypothyroid Hyperlipidemia Vitamin D deficiency Surgical History Hx of appendectomy Hx of tonsillectomy Hx of knee surgery Social History Smoking and tobacco/nicotine status: never used tobacco/nicotine Second hand smoke exposure: No Alcohol intake: never Substance/Drug Use: never Caregiver/support person: Yes Lives independently: Yes Household members: spouse Housing: House Marital status: service: No Current occupational status: employed Current occupation: [employer] Current gender identity: Female Special lina needs: No Agree to transfusion: Yes Physical Exam Const: COMMON NORMALS: no acute distress, average body habitus, patient oriented x3, no limitations, healthy appearing, alert and well nourished HENMT: COMMON NORMALS: normocephalic, atraumatic, hearing grossly normal bilaterally, external ears normal, Normal external nose present, moist oral mucous membranes and oropharynx normal HEAD & SCALP: normocephalic and atraumatic NOSE: Normal external nose present EXTERNAL EAR: Yes external ears normal Neck/C-Spine: COMMON NORMALS: no JVD Chest: COMMONS NORMALS: normal inspection of the chest and normal palpation of entire chest wall Resp: COMMON NORMALS: normal respiratory effort, No retractions, No use of accessory muscles and clear to auscultation bilaterally AUSCULTATION: clear to auscultation bilaterally Cardio: COMMON NORMALS: no JVD, regular rate, regular rhythm, S1 normal heart sound present, S2 normal heart sound present, No gallops present (Cardio), No clicks present (Cardio), No murmurs present (Cardio) and No rub (Cardio) RATE: regular rate RHYTHM: regular rhythm HEART SOUNDS: S1 normal heart sound present and S2 normal heart sound present GI: COMMON NORMALS: Normal to inspection, nondistended, normoactive bowel sounds present, Soft to palpation, non-tender, No hepatosplenomegaly present and no masses PALPATION: Yes Soft to palpation and Yes No hepatosplenomegaly pre sent Extremity: NARRATIVE EXTREMITY EXAM: Pain fullness with palpation over right greater trochanter no obvious crepitus or deformity noted. Neuro: COMMON NORMALS: patient oriented x3 SENSORIUM/ORIENTATION: Yes alert Course Vital Signs: Vital signs: Vital Signs Temperature 98.5 F 12/31/23 12:26 Pulse Rate 96 12/31/23 14:23 Respiratory Rate 16 12/31/23 12:26 Blood Pressure 140/96 12/31/23 14:23 Pulse Oximetry 94 12/31/23 14:23 Oxygen Delivery Me thod Room Air 12/31/23 12:26 MDM - Extremity (Nontraumatic) Medical Decision Making X-ray of right hip and pelvis was performed and read off negative by radiology. These results was discussed with the patient. Patient be sent home on hydrocodone and an appointment arranged to follow-up with Ortho preferably in [place]. Differential Diagnosis Unlikely herpes zoster, gout, cellulitis, superficial thrombophlebitis, deep venous thrombosis of upper extremity, lower extremity edema or deep vein thrombosis of lower extremity Medical Records I reviewed the patient's medical records. Lab Data I reviewed the patient's lab results. Radiology Impressions Hip/Pelvis X-Ray 12/31/23 12:37 IMPRESSION: No acute findings. All radiology interpretation(s) finalized by discharge Discharge Plan Discharge Patient Disposition: Home Clinical Impression: Acute pain of right hip Condition: Stable Prescriptions: New hydrocodone-acetaminophen 5-325 mg tablet 1 tab PO Q6H PRN (Reason: pain) Qty: 14 0RF No Action aspirin [Adult Low Dose Aspirin] 81 mg tablet,delayed release (DR/EC) See Rx Instructions .ROUTE .COMPLEX Rx Instructions: 81mg po daily for 21 days a month tizanidine 4 mg tablet 4 mg PO Q8H PRN (Reason: muscle spasticity) Qty: 30 2RF (DME) pen needle, diabetic [Comfort EZ Pen [place]] 31 gauge x 5/16 needle See Rx Instructions .Route Qty: 200 5RF Rx Instructions: use with insulin injections up to 5x/day (DME) FreeStyle [place] 14 Day Sensor Kit See Rx Instructions .ROUTE .COMPLEX Qty: 2 11RF Dose Instruction: USE TO CHECK BLOOD SUGAR 4 TIMES DAILY AND DIRECTED Rx Instructions: USE TO CHECK BLOOD SUGAR 4 TIMES DAILY AND DIRECTED Vitamin B-12 1,000 mcg Tablet 1,000 mcg PO DAILY magnesium oxide 500 mg magnesium Tablet 500 mg PO BID gabapentin 300 mg capsule 300 mg PO QID Vitamin D3 25 mcg (1,000 unit) Capsule 25 mcg PO DAILY pravastatin 80 mg tablet 80 mg PO BEDTIME ropinirole 4 mg tablet 4 mg PO BID Tou[place]o Max U-300 SoloStar 300 unit/mL (3 mL) insulin pen 30 unit SUBCUT QAM pomalidomide 3 mg Capsule See Rx Instructions .ROUTE .COMPLEX Rx Instructions: take one capsule po daily for 21 days then off for 7 days ondansetron HCl 4 mg tablet 4 mg PO TID PRN (Reason: Nausea And Vomiting) venlafaxine 150 mg capsule,extended release 24hr 150 mg PO QAM levothyroxine 75 mcg tablet 75 mcg PO QAM captopril 50 mg tablet 50 mg PO BEDTIME furosemide 20 mg tablet 20 mg PO DAILY Janumet 50-1,000 mg tablet 1 tab PO BID Discharge Orders: Discharge ED (Routine); Ordered 12/31/23 Ordered By: Gee Shin Referrals: Sydnee Rivero FNP [Primary Care Provider] - 1 week Patient Instructions: Hip Pain (ED), Opioid Safety, Pain Management Activity Restrictions/Additional Instructions: Please take all medicine as directed. You have been referred to case management, they will be calling you to arrange an appointment with orthopedics and a note was made that you prefer [place]. If they have not called you within 2 or 3 business days please feel free to call back. Coding Level of Care Code ED Scale Attendant for Shreya Coppola
--- NOTE | 2023-12-31 13:31 | PC.PHAR ---
Addendum entered by Melissa Crespo 12/31/23 14:10: mazin shelley from [facility] sent the pt is taking zometa infusion and pomalidomide 3mg daily pt states she is not getting any kind of infusions states she is only taking a one cap daily for 21 days and off for 7 days Original Note: pt and pts verified pts medications-pt states never started ozempic and no longer takes lantus solostar due to insurance no longer covering either medications-pt states she gets a chemo pill for 21 days and off for 7 days and some kind of once a week pill states office in [facility] prescribes for her-called office talked to arielle states she will fax us what the dr prescribes for her-waiting for fax
[2023-12-31 13:39] VITALS: BP 124/82; PULSE 96; O2SAT 92
[2023-12-31 14:23] VITALS: BP 140/96; PULSE 96; O2SAT 94
--- NOTE | 2023-12-31 16:09 | DCPLANNER ---
sent referral to dwain Hartmann [phone]
== END 2023-12-31 14:24 | disposition home or self-care (01) ==
PROVIDERS: Emergency Provider Emergency Medicine; PCP Nurse Practitioner Family
DX: M25.551 Pain in right hip (principal); Z79.82 Long term (current) use of aspirin; Z79.4 Long term (current) use of insulin; E11.9 Type 2 diabetes mellitus without complications; I10 Essential (primary) hypertension; E78.5 Hyperlipidemia, unspecified
CPT/HCPCS: 73502; 99283

== ENCOUNTER → 2024-03-23 11:07 | Outpatient (BNVA) | payer BC, SELFPAY | PROVIDERS: PCP Nurse Practitioner Family; Visit Provider Nurse Practitioner Family | DX: E03.9 Hypothyroidism, unspecified (principal); E78.5 Hyperlipidemia, unspecified; E55.9 Vitamin D deficiency, unspecified; E11.65 Type 2 diabetes mellitus with hyperglycemia; Z79.4 Long term (current) use of insulin | CPT/HCPCS: 80053; 80061; 82306; 83036; 84443; 85025 ==

== ENCOUNTER → 2024-05-05 14:44 | Outpatient (CLI) | payer BC, SELFPAY ==
--- NOTE | 2024-05-05 15:00 | USCV_ITS ---
Jaylyn Ellis Age: 58 Gender: F : 1965 Exam Date: 05/05/2024 15:13 Ordering Phys: Sydnee Rivero WIG DRESSER Technologist: Exam Location: [facility] [place] Indication: murmur BP: 120 / 70 HR: 85 Rhythm: Sinus Technical Quality: Suboptimal MEASUREMENTS (Male / Female) Normal Values 2D ECHO LV Diastolic Diameter PLAX 3.4 cm 4.2 - 5.9 / 3.9 - 5.3 cm IVS Diastolic Thickness 1.3 cm 0.6 - 1.0 / 0.6 - 0.9 cm IVS Systolic Thickness 1.9 cm LVPW Diastolic Thickness 1.4 cm 0.6 - 1.0 / 0.6 - 0.9 cm LVPW Systolic Thickness 1.8 cm LVOT Diameter 2.0 cm LV Ejection Fraction 2D Teich 64.0 % LV Ejection Fraction MOD 4C 62.0 % LV Ejection Fraction MOD 2C 63.0 % LV Ejection Fraction 2C AL 62.8 % LA Diameter 2.2 cm RA Systolic Volume 4C AL 32.7 ml RA Systolic Volume 4C MOD 34.1 ml Aorta at Sinotubular Diameter 2.7 cm IVC Diameter 1.5 cm M-MODE LA Ao Ratio MM 1.5 AV Cusp Separation MM 2.0 cm DOPPLER AV Peak Velocity 172.0 cm/s LVOT Peak Velocity 92.0 cm/s AV Area Cont Eq vti 2.5 cm squared AV Area Cont Eq pk 1.7 cm squared MV Peak Velocity 140.0 cm/s MV Area PHT 5.3 cm squared Mitral E to A Ratio 1.4 TV Peak Velocity 152.5 cm/s TR Peak Velocity 178.0 cm/s TR Peak Gradient 12.7 mmHg TV Peak E Velocity 63.0 cm/s Right Atrial Pressure 3.0 mmHg Pulmonary Artery Systolic Pressu 15.7 mmHg PV Peak Velocity 93.5 cm/s FINDINGS Left Ventricle Normal left ventricular size, systolic function and wall thickness, with no regional wall motion abnormalities. Grade I/IV diastolic dysfunction (abnormal relaxation filling pattern), normal to mildly elevated filling pressures. Left ventricular ejection fraction is estimated at 60 %. Right Ventricle Normal right ventricular size and systolic function. Normal right ventricular systolic pressure. Right Atrium The right atrium is normal in size. Left Atrium The left atrium is normal in size. Mitral Valve Structurally normal mitral valve. Mild mitral valve regurgitation. Aortic Valve Structurally normal trileaflet aortic valve. Trace aortic valve regurgitation. No aortic valve stenosis. Tricuspid Valve Structurally normal tricuspid valve. Pulmonic Valve Pulmonic valve not well visualized. Pericardium Normal pericardium without effusion. Aorta Normal ascending aorta dimension. IVC Inferior vena cava not visualized. CONCLUSIONS Normal left ventricular size, systolic function and wall thickness, with no regional wall motion abnormalities. Grade I/IV diastolic dysfunction (abnormal relaxation filling pattern), normal to mildly elevated filling pressures. Left ventricular ejection fraction is estimated at 60 %. Structurally normal mitral valve. Mild mitral valve regurgitation. Structurally normal trileaflet aortic valve. Trace aortic valve regurgitation. No aortic valve stenosis. No change from the previous study dated 05/18/2021 Dr. Viktor Law MD (Electronically Signed) Final Date: 05 May 2024 17:47 S
== END | disposition home or self-care (01) ==
LOC: RAD 14:43
PROVIDERS: PCP Nurse Practitioner Family; Visit Provider Nurse Practitioner Family
DX: I50.30 Unspecified diastolic (congestive) heart failure (principal); R01.1 Cardiac murmur, unspecified; I50.9 Heart failure, unspecified
CPT/HCPCS: 93306

== ENCOUNTER → 2024-06-23 16:00 | Outpatient (BNVA) | payer BC, SELFPAY | PROVIDERS: PCP Nurse Practitioner Family; Visit Provider Nurse Practitioner Family | DX: R06.02 Shortness of breath (principal); R94.31 Abnormal electrocardiogram [ECG] [EKG] | CPT/HCPCS: 93005 ==

== ENCOUNTER 2024-06-23 18:17 | Emergency (ER) | payer BC, SELFPAY ==
--- NOTE | 2024-06-23 18:22 | XRR_ITS ---
PROCEDURE INFORMATION: Exam: XR Chest Exam date and time: 06/23/2024 6:32 PM Age: 58 years old Clinical indication: Other: A-fib; Additional info: Afib TECHNIQUE: Imaging protocol: Radiologic exam of the chest. Views: 1 view. COMPARISON: CR XR chest 2V* [id number] 07/03/2021 12:09 PM FINDINGS: Lungs: Linear atelectasis versus scarring of the lung bases. No focal consolidations. Pleural spaces: Unremarkable. No pleural effusion. No pneumothorax. Heart/Mediastinum: Unremarkable. No cardiomegaly. Bones/joints: Chronic rib deformities. XR/XR chest 1V portable [id number] IMPRESSION: Linear atelectasis versus scarring of the lung bases. No focal consolidations.
--- NOTE | 2024-06-23 18:23 | ECG_ITS ---
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 Measurements Intervals [place] Rate: 106 P: 60 WA: 170 QRS: 0 QRSD: 89 T: 59 QT: 338 QTc: 449 Interpretive Statements SINUS TACHYCARDIA WITH OCCASIONAL VENTRICULAR PREMATURE COMPLEXES POSSIBLE LEFT ATRIAL ENLARGEMENT [-0.1mV P-WAVE IN V1/V2] LOW QRS VOLTAGE IN PRECORDIAL LEADS [QRS DEFLECTION < 1.0 mV IN CHEST LEADS] POSSIBLE ANTERIOR MYOCARDIAL INFARCTION , PROBABLY OLD [30 ms Q WAVE IN V3/V4, OR R < 0.2 mV IN V4] ABNORMAL RHYTHM ECG Compared to ECG 05/17/2021 22:09:15 Ventricular premature complex(es) now present Low QRS voltage now present Myocardial infarct finding now present T-wave abnormality no longer present Possible ischemia no longer present Electronically Signed On 06-24-2024 17:31:54 CDT by Zoie Gant M.D. [email or web address]
[2024-06-23 18:33] VITALS: BP 120/56; PULSE 109; TEMP 36.8; O2SAT 99
[2024-06-23 18:50] LABS: Hematocrit 25.4 % (36-47); Lymphocytes # 0.6 10^3/uL (0.8-4.8); Lymphocytes % 15.9 %; Mean Corpuscular HGB Conc 31.5 g/dL (30-55); Mean Corpuscular Hemoglobin 32.4 pg (27-33); Mean Corpuscular Volume 102.8 fl (85-98); Mean Platelet Volume 11.5 fL (7.4-10.4); Monocytes # 0.3 10^3/uL (0.2-0.9); Monocytes % 9.8 %; Neutrophils # 2.54 10^3/uL (1.8-7.7); Neutrophils % 73.1 %; Nucleated Red Blood Cells % 0.6 %; Platelet Count 90 10^3/cmm (157-399); Red Blood Count 2.47 10^6/uL (3.85-5.65); Red Cell Distribution Width 17.3 % (12.1-15.1); White Blood Count 3.47 10^3/uL (3.29-11.43)
[2024-06-23 19:29] LABS: Alanine Aminotransferase 15 U/L (0-33); Albumin Level 3.6 g/dL (3.5-5.2); Alkaline Phosphatase 156 U/L (35-105); Aspartate Amino Transferase 17 U/L (0-32); Blood Urea Nitrogen 12 mg/dL (6-20); Calcium 9.6 mg/dL (8.5-10.5); Carbon Dioxide 26 mmol/L (22-29); Chloride 94 mmol/L (98-107); Creatinine Clr Calc Pharmacy 102.9633; Globulin 4.1 g/dL (1.3-4.6); Glomerular Filtration Rate 102.3 mL/min (90-130); Glucose 174 mg/dL (65-115); NT Pro B Type Natriuretic Pept 7791 pg/mL (0-125); Osmolality Calculated 276 mOsm/kg (285-295); Sodium 131 mmol/L (136-145); Total Bilirubin 0.3 mg/dL (0.15-1.2); Total Protein 7.7 g/dL (6.6-8.7)
[2024-06-23 19:45] LABS: Troponin(5th) Baseline 30 ng/L (0-10)
[2024-06-23 19:49] LABS: INR 1.14 (0.8-1.2)
[2024-06-23 19:53] LABS: Magnesium 1.5 mg/dL (1.7-2.3)
[2024-06-23 20:03] VITALS: BP 120/79; PULSE 106; RESP 24; O2SAT 97
--- NOTE | 2024-06-23 20:22 | ED_ITS ---
HPI - Arrhythmia/Palpitations 2 General: Chief Complaint: Arrhythmia/Palpitations Stated Complaint: doc madeline. sent afib swollen feet Time Seen by Provider: 06/23/24 19:32 History of Present Illness: Who presents to the ER with complaints of going to her family doctor's office for evaluation of irregular heartbeat and shortness of breath and they diagnosed her with new onset A-fib and sent her over here for further evaluation and treatment. Patient is not on any blood thinner at this time. Patient has had increasing swelling of bilateral legs and more fatigued than normal. Related Data Home Medications Medication Instructions Recorded Confirmed aspirin 81 mg tablet,delayed See Rx Instructions .Route .COMPLEX 11/29/21 06/23/24 release (Adult Low Dose Aspirin) cyanocobalamin (vitamin B-12) 1,000 mcg PO DAILY 12/31/23 06/23/24 1,000 mcg tablet (Vitamin B-12) magnesium oxide 500 mg PO BID 12/31/23 06/23/24 acyclovir 400 mg tablet mg PO 05/20/24 06/23/24 selinexor 60 mg/week (60 mg x 1) See Rx Instructions PO PER PKG DIR 05/20/24 06/23/24 tablet (Xpovio) Previous Rx's Medication Instructions Recorded tizanidine 4 mg tablet 4 mg PO Q8H PRN muscle spasticity 02/28/23 #30 tabs hydrocodone 5 mg-acetaminophen 325 1 tab PO Q6H PRN pain #14 tabs 12/31/23 mg tablet pen needle, diabetic 31 gauge x #200 ea 02/04/2403/05 (BD Ultra-Fine Short Pen Needle) furosemide 40 mg tablet 40 mg PO QAM #90 tabs 03/23/24 metformin 1,000 mg tablet 1,000 mg PO BID #180 tabs 03/23/24 captopril 50 mg tablet See Rx Instructions .Route 03/27/24 .COMPLEX #90 tabs ergocalciferol (vitamin D2) 1,250 1,250 mcg PO .weekly #12 caps 03/30/24 mcg (50,000 unit) capsule levothyroxine 88 mcg tablet See Rx Instructions .Route 03/30/24 .COMPLEX #90 tabs ropinirole 4 mg tablet 4 mg PO BID #180 tabs 04/08/24 mupirocin 2 % topical ointment 1 applic topical BID #22 grams 04/10/24 sulfamethoxazole 800 1 tab PO BID 10 days #20 tabs 04/10/24 mg-trimethoprim 160 mg tablet (Bactrim DS) flash glucose sensor (FreeStyle #2 ea 04/13/24 Vonnie 14 Day Sensor kit) venlafaxine 150 mg See Rx Instructions .Route 04/20/24 capsule,extended release 24 hr .COMPLEX #30 caps insulin glargine U-300 conc 300 30 unit (0.1 mL) SUBCUT QAM #6 mL 04/28/24 unit/mL (3 mL) subcutaneous pen (Toujeo Max U-300 SoloStar) primidone 50 mg tablet 100 mg (2 x 50 mg) PO TID #180 tabs 05/20/24 pregabalin 150 mg capsule 150 mg PO BID 90 days #180 caps 05/28/24 tirzepatide 5 mg/0.5 mL 5 mg (0.5 mL) SUBCUT .weekly #2 mL 06/01/24 subcutaneous pen injector ondansetron HCl 4 mg tablet See Rx Instructions .Route 06/08/24 .COMPLEX #90 tabs pravastatin 80 mg tablet See Rx Instructions .Route 06/08/24 .COMPLEX #90 tabs Allergies Allergy/AdvReac Type Severity Reaction Status Date / Time pseudoephedrine Allergy Mild ADR-Itching Verified 06/23/24 18:37 [From [place] (pseudoephedrine)] Penicillins Allergy Unknown ADR-Itching Verified 06/23/24 18:37 Review of Systems 2 General: Reports: 10 or more systems reviewed and unremarkable except in HPI and below PFSH ED 2 PFSH: Medical History Multiple myeloma COVID-08 May 2020 NATALIE (obstructive sleep apnea) Nocturnal hypoxemia Diabetes mellitus Hypertension Restless leg syndrome Hypothyroid Hyperlipidemia Vitamin D deficiency Surgical History Hx of appendectomy Hx of tonsillectomy Hx of knee surgery Social History Smoking and tobacco/nicotine status: never used tobacco/nicotine Second hand smoke exposure: No Alcohol intake: never Substance/Drug Use: never Caregiver/support person: Yes Lives independently: Yes Household members: spouse Housing: House Marital status: service: No Current occupational status: employed Current occupation: [employer] Current gender identity: Female Special lina needs: No Agree to transfusion: Yes Physical Exam 2 Const: COMMON NORMALS: no acute distress, average body habitus, patient oriented x3, no limitations, healthy appearing, alert and well nourished HENMT: COMMON NORMALS: normocephalic, atraumatic, hearing grossly normal bilaterally, external ears normal, Normal external nose present and moist oral mucous membranes HEAD & SCALP: normocephalic and atraumatic NOSE: Normal external nose present EXTERNAL EAR: Yes external ears normal Neck/C-Spine: COMMON NORMALS: no JVD Chest: COMMONS NORMALS: normal inspection of the chest and normal palpation of entire chest wall Resp: COMMON NORMALS: normal respiratory effort, No retractions, No use of accessory muscles and clear to auscultation bilaterally AUSCULTATION: clear to auscultation bilaterally Cardio: COMMON NORMALS: no JVD, regular rhythm, S1 normal heart sound present, S2 normal heart sound present, No gallops present (Cardio), No clicks present (Cardio), No murmurs present (Cardio) and No rub (Cardio); negative for regular rate (Mildly tachycardic) RATE: abnormal rate (Mildly tachycardic) RHYTHM: regular rhythm HEART SOUNDS: S1 normal heart sound present and S2 normal heart sound present GI: COMMON NORMALS: Normal to inspection, nondistended, normoactive bowel sounds present, Soft to palpation, non-tender, No hepatosplenomegaly present and no masses PALPATION: Yes Soft to palpation and Yes No hepatosplenomegaly present Neuro: COMMON NORMALS: patient oriented x3 SENSORIUM/ORIENTATION: Yes alert Course 2 Vital Signs: Vital signs: Vital Signs Temperature 98.3 F 06/23/24 18:33 Pulse Rate 101 H 06/23/24 22:53 Respiratory Rate 18 06/23/24 22:53 Blood Pressure 111/62 06/23/24 22:53 Pulse Oximetry 98 06/23/24 22:53 Oxygen Delivery Me thod Room Air 06/23/24 22:00 MDM - Arrhythmia/Palpitations Medical Decision Making Patient presented with intermittent A-fib swelling fatigue. Patient lab work that showed patient is anemic with a hemoglobin of 8.0 elevated BNP at 7800, baseline troponin 30, 2-hour troponin 24, urinalysis negative, chest x-ray negative, these results was discussed with the patient. EKG showed tachycardia with PVCs, patient be referred for Holter monitor and discussed her taking an 81 mg aspirin on a daily basis. Patient to follow-up with her PCP within next 7 to 10 days for recheck of her anemia. Differential Diagnosis Likely palpitations Medical Records I reviewed the patient's medical records. Lab Data I reviewed the patient's lab results. 06/23/24 18:44 06/23/24 18:44 Radiology Impressions Chest X-Ray 06/23/24 18:22 IMPRESSION: Linear atelectasis versus scarring of the lung bases. No focal consolidations. Laboratory Results WBC 3.47 10^3/uL (3.29-11.43) 06/23/24 18:44 RBC 2.47 10^6/uL (3.85-5.65) L 06/23/24 18:44 Hgb 8.00 g/dL (11.27-16.99) L 06/23/24 18:44 Hct 25.4 % (36-47) L 06/23/24 18:44 MCV 102.8 fl (85-98) H 06/23/24 18:44 MCH 32.4 pg (27-33) 06/23/24 18:44 MCHC 31.5 g/dL (30-55) 06/23/24 18:44 RDW 17.3 % (12.1-15.1) H 06/23/24 18:44 Plt Count 90 10^3/cmm (157-399) L 06/23/24 18:44 MPV 11.5 fL (7.4-10.4) H 06/23/24 18:44 Neut % (Auto) 73.1 % 06/23/24 18:44 Lymph % (Auto) 15.9 % 06/23/24 18:44 Mobile % (Auto) 9.8 % 06/23/24 18:44 Eos % (Auto) 0.0 % 06/23/24 18:44 Baso % (Auto) 0.0 % 06/23/24 18:44 Neut # (Auto) 2.54 10^3/uL (1.8-7.7) 06/23/24 18:44 Lymph # (Auto) 0.6 10^3/uL (0.8-4.8) L 06/23/24 18:44 Mobile # (Auto) 0.3 10^3/uL (0.2-0.9) 06/23/24 18:44 Eos # (Auto) 0.0 10^3/uL (0.0-0.8) 06/23/24 18:44 Baso # (Auto) 0.0 10^3/uL (0.0-0.1) 06/23/24 18:44 Nucleated RBC % (auto) 0.6 % 06/23/24 18:44 Nucleated RBCs # 0.0 /100WBC 06/23/24 18:44 PT 14.90 SECONDS (12.1-14.9) 06/23/24 18:44 INR 1.14 (0.8-1.2) 06/23/24 18:44 Sodium 131 mmol/L (136-145) L 06/23/24 18:44 Potassium 4.0 mmol/L (3.5-5.1) 06/23/24 18:44 Chloride 94 mmol/L (98-107) L 06/23/24 18:44 Carbon Dioxide 26 mmol/L (22-29) 06/23/24 18:44 Anion Gap 15.0 (5-19) 06/23/24 18:44 BUN 12 mg/dL (6-20) 06/23/24 18:44 Creatinine 0.6 mg/dL (0.5-0.9) 06/23/24 18:44 GFR Calculation 102.3 mL/min (90-130) 06/23/24 18:44 Glucose 174 mg/dL (65-115) H 06/23/24 18:44 Calculated Osmolality 276 mOsm/kg (285-295) L 06/23/24 18:44 Calcium 9.6 mg/dL (8.5-10.5) 06/23/24 18:44 Magnesium 1.5 mg/dL (1.7-2.3) L 06/23/24 18:44 Total Bilirubin 0.3 mg/dL (0.15-1.2) 06/23/24 18:44 AST 17 U/L (0-32) 06/23/24 18:44 ALT 15 U/L (0-33) 06/23/24 18:44 Alkaline Phosphatase 156 U/L (35-105) H 06/23/24 18:44 Troponin T Baseline 30 ng/L (0-10) H 06/23/24 18:44 Troponin T 120 Minute 23.93 ng/L (0-10) H 06/23/24 22:03 Delta Troponin T -6.07 ABS# (0-10) L 06/23/24 22:03 NT-Pro-B Natriuret Pep 7791 pg/mL (0-125) H 06/23/24 18:44 Total Protein 7.7 g/dL (6.6-8.7) 06/23/24 18:44 Albumin 3.6 g/dL (3.5-5.2) 06/23/24 18:44 Globulin 4.1 g/dL (1.3-4.6) 06/23/24 18:44 Urine Color Yellow (Yellow) 06/23/24 22:20 Urine Appearance Clear (CLEAR) 06/23/24 22:20 Urine pH 7.0 (5-7) 06/23/24 22:20 Ur Specific [place] 1.014 (1.005-1.030) 06/23/24 22:20 Urine Protein 1+ (Negative) A 06/23/24 22:20 Urine Glucose (UA) Negative (Normal) 06/23/24 22:20 Urine Ketones Negative (Negative) 06/23/24 22:20 Urine Blood Negative (Negative) 06/23/24 22:20 Urine Nitrate Negative (Negative) 06/23/24 22:20 Urine Bilirubin Negative (Negative) 06/23/24 22:20 Urine Urobilinogen 1.0 mg/dL (Negative) 06/23/24 22:20 Ur Leukocyte Esterase Negative (Negative) 06/23/24 22:20 Urine RBC None /hpf (0-2) 06/23/24 22:20 Urine WBC None /hpf (0-5) 06/23/24 22:20 Ur Squamous Epith Cells 5-10 /hpf (0-5) H 06/23/24 22:20 Amorphous Sediment Not Reportable 06/23/24 22:20 Urine Bacteria None /hpf (NONE) 06/23/24 22:20 All radiology interpretation(s) finalized by discharge Discharge Plan Discharge Patient Disposition: Home Clinical Impression: Heart palpitations Anemia Qualifiers: Anemia type: unspecified type Qualified Code(s): D64.9 - Anemia, unspecified Condition: Stable Prescriptions: No Action aspirin [Adult Low Dose Aspirin] 81 mg tablet,delayed release (DR/EC) See Rx Instructions .ROUTE .COMPLEX Rx Instructions: 81mg po daily for 21 days a month tizanidine 4 mg tablet 4 mg PO Q8H PRN (Reason: muscle spasticity) Qty: 30 2RF acyclovir 400 mg tablet PO Xpovio 60 mg/week (60 mg x 1) tablet See Rx Instructions PO PER PKG DIR Rx Instructions: PO PER PKG DIR primidone 50 mg tablet 100 mg PO TID Qty: 180 7RF metformin 1,000 mg tablet 1,000 mg PO BID Qty: 180 1RF furosemide 40 mg tablet 40 mg PO QAM Qty: 90 1RF ropinirole 4 mg tablet 4 mg PO BID Qty: 180 1RF sulfamethoxazole-trimethoprim [Bactrim DS] 800-160 mg tablet 1 tab PO BID 10 Days Qty: 20 0RF mupirocin 2 % ointment 1 applic topical BID Qty: 22 0RF Toujeo Max U-300 SoloStar 300 unit/mL (3 mL) insulin pen 30 unit SUBCUT QAM Qty: 6 2RF (DME) pen needle, diabetic [BD Ultra-Fine Short Pen Needle] 31 gauge x 5/16 needle See Rx Instructions .ROUTE .COMPLEX Qty: 200 4RF Dose Instruction: USE WITH INSULIN INJECTIONS UP TO 5 TIMES A DAY Rx Instructions: USE WITH INSULIN INJECTIONS UP TO 5 TIMES A DAY captopril 50 mg tablet See Rx Instructions .ROUTE .COMPLEX Qty: 90 1RF Dose Instruction: TAKE 1 TABLET BY MOUTH AT BEDTIME Rx Instructions: TAKE 1 TABLET BY MOUTH AT BEDTIME ergocalciferol (vitamin D2) 1,250 mcg (50,000 unit) capsule 1,250 mcg PO .weekly Qty: 12 0RF levothyroxine 88 mcg tablet See Rx Instructions .ROUTE .COMPLEX Qty: 90 1RF Dose Instruction: TAKE 1 TABLET BY MOUTH ONCE DAILY Rx Instructions: TAKE 1 TABLET BY MOUTH ONCE DAILY (DME) FreeStyle Vonnie 14 Day Sensor Kit See Rx Instructions .ROUTE .COMPLEX Qty: 2 12RF Dose Instruction: USE TO CHECK BLOOD SUGAR 4 TIMES DAILY AND DIRECTED Rx Instructions: USE TO CHECK BLOOD SUGAR 4 TIMES DAILY AND DIRECTED venlafaxine 150 mg capsule,extended release 24hr See Rx Instructions .ROUTE .COMPLEX Qty: 30 5RF Dose Instruction: TAKE 1 CAPSULE BY MOUTH ONCE DAILY Rx Instructions: TAKE 1 CAPSULE BY MOUTH ONCE DAILY pregabalin 150 mg capsule 150 mg PO BID 90 Days Qty: 180 5RF tirzepatide 5 mg/0.5 mL pen injector 5 mg SUBCUT .weekly Qty: 2 2RF ondansetron HCl 4 mg tablet See Rx Instructions .ROUTE .COMPLEX Qty: 90 0RF Dose Instruction: TAKE 1 TABLET BY MOUTH EVERY 8 HOURS NEEDED FOR NAUSEA AND VOMITING Rx Instructions: TAKE 1 TABLET BY MOUTH EVERY 8 HOURS NEEDED FOR NAUSEA AND VOMITING pravastatin 80 mg tablet See Rx Instructions .ROUTE .COMPLEX Qty: 90 1RF Dose Instruction: TAKE 1 TABLET BY MOUTH ONCE DAILY Rx Instructions: TAKE 1 TABLET BY MOUTH ONCE DAILY Vitamin B-12 1,000 mcg Tablet 1,000 mcg PO DAILY magnesium oxide 500 mg magnesium Tablet 500 mg PO BID hydrocodone-acetaminophen 5-325 mg tablet 1 tab PO Q6H PRN (Reason: pain) Qty: 14 0RF Discharge Orders: Discharge ED (Routine); Ordered 06/23/24 Ordered By: Gee Shin Referrals: Sydnee Rivero FNP [Primary Care Provider] - 1 week Patient Instructions: Anemia, Heart Palpitations (DC) Activity Restrictions/Additional Instructions: Evaluation ER showed you are having frequent premature ventricular contractions or PVCs, did not show any atrial fibrillation at this time. He also showed you are anemic with your hemoglobin at approximately 8.0. He had been referred to case management for an outpatient Holter monitor they should be calling you sometime tomorrow to arrange this. Please follow-up with your family practice physician within the next 7 to 14 days for recheck on your symptoms and your anemia. Coding Level of Care Code ED Battery Loader for Shreya Coppola
[2024-06-23 20:32] VITALS: BP 118/82; PULSE 108; RESP 22; O2SAT 97
--- NOTE | 2024-06-23 21:26 | ECG_ITS ---
[facility] Test Date: 2024-06-23 Pat Name: Jaylyn Ellis Department: Room: Gender: Female Bowstring Maker: : 1965 Requested By: Gee Shin Order Number: [id number] Anatoly MD: Zoie Gant M.D. Measurements Intervals [place] Rate: 104 P: 49 TN: 174 QRS: -12 QRSD: 83 T: 52 QT: 340 QTc: 448 Interpretive Statements SINUS TACHYCARDIA POSSIBLE LEFT ATRIAL ENLARGEMENT [-0.1mV P-WAVE IN V1/V2] LOW QRS VOLTAGE IN PRECORDIAL LEADS [QRS DEFLECTION < 1.0 mV IN CHEST LEADS] POSSIBLE ANTERIOR MYOCARDIAL INFARCTION , PROBABLY OLD [30 ms Q WAVE IN V3/V4, OR R < 0.2 mV IN V4] ABNORMAL RHYTHM ECG Compared to ECG 06/23/2024 18:25:44 Ventricular premature complex(es) no longer present Myocardial infarct finding still present Electronically Signed On 06-24-2024 17:39:35 CDT by Zoie Gant M.D. [email or web address]
[2024-06-23 21:34] VITALS: BP 117/63; PULSE 103; RESP 24; O2SAT 95
[2024-06-23 22:00] VITALS: BP 121/67; PULSE 103; RESP 16; O2SAT 98
[2024-06-23 22:23] LABS: Charge for UA Resulting for Rev
[2024-06-23 22:25] LABS: Bilirubin Urine Negative (Negative); Blood Urine Negative (Negative); Glucose Urine UA Negative (Normal); Ketones Urine Negative (Negative); Leukocyte Esterase Urine Negative (Negative); Nitrate Urine Negative (Negative); Protein Urine 1+ (Negative); Specific Gravity, Urine 1.014 (1.005-1.030); Urine Appearance Clear (CLEAR); Urine Color Yellow (Yellow)
[2024-06-23 22:32] LABS: Troponin 5 2HR 23.93 ng/L (0-10)
[2024-06-23 22:33] LABS: Add Urine Culture? No; UA Manual Slide Review YES
[2024-06-23 22:33] LABS: Troponin 5 2HR Delta -6.07 ABS# (0-10)
[2024-06-23 22:53] VITALS: BP 111/62; PULSE 101; RESP 18; O2SAT 98
--- NOTE | 2024-06-24 10:36 | DCPLANNER ---
Message sent to Cardio for 30 day holter monitor.
== END 2024-06-23 22:56 | disposition home or self-care (01) ==
PROVIDERS: Emergency Medicine; Emergency Provider Emergency Medicine; PCP Nurse Practitioner Family
DX: R00.2 Palpitations (principal); D64.9 Anemia, unspecified; Z79.82 Long term (current) use of aspirin; Z79.84 Long term (current) use of oral hypoglycemic drugs; Z79.4 Long term (current) use of insulin; Z79.85 Long-term (current) use of injectable non-insulin antidiabetic drugs; E11.9 Type 2 diabetes mellitus without complications; I10 Essential (primary) hypertension; E78.5 Hyperlipidemia, unspecified
CPT/HCPCS: 36415; 71045; 80053; 81003; 81015; 83735; 83880; 84484; 85025; 85610; 93005; 99285